=== PATIENT | female | born 1940 | race Caucasian/White ===

== ENCOUNTER 2019-08-29 14:28 | Outpatient (CLI) | payer MEDICARE, SELFPAY ==
--- NOTE | 2019-08-29 14:35 | ECHO_ITS ---
Patient Info Name: Maggy Damon Age: 79 years : 1940 Gender: Female Ht: 63 in Wt: 277 lbs BSA: 2.44 m2 HR: 58 bpm BP: 165 / 75 mmHg Technical Quality: Fair Exam Date: 08/29/2019 3:47 PM Exam Location: [facility] Patient Status: Outpatient Admit Date: 08/29/2019 Staff Ordering Physician: Yelena Souza Loader Magazine Grinder: Sanjeev Cee RDCS, RT Attending Provider: Yelena Souza Exam Type: CA echo doppler color flow Study Info Indications R42 - Dizziness and giddiness Complete two-dimensional, color flow and Doppler transthoracic echocardiogram is performed. Summary 1. Left ventricular chamber dimension is normal. 2. Left ventricular systolic function is normal, estimated at 60-65%. 3. There is mildly increased left ventricular wall thickness. 4. The left ventricular diastolic function is grade I diastolic dysfunction. 5. E/e' 7 is not elevated. Left Ventricle E/e' 7 is not elevated. Left ventricular chamber dimension is normal. Left ventricular systolic function is normal, estimated at 60-65%. There is mildly increased left ventricular wall thickness. The left ventricular diastolic function is grade I diastolic dysfunction. Right Ventricle Right ventricular chamber dimension is normal. Right ventricular systolic function is normal. Left Atria Left atrial chamber dimension is normal. Right Atria Right atrial chamber dimension is normal. Aortic Valve The aortic valve is trileaflet. There is no aortic valve stenosis. There is no aortic valve regurgitation. Pulmonic Valve There is no pulmonic regurgitation. Mitral Valve There is no mitral valve stenosis. There is no mitral valve regurgitation. Tricuspid Valve There is no tricuspid valve regurgitation. Pericardium/Pleural There is no pericardial effusion. Inferior Vena Cava Normal inferior vena cava with >50% collapse upon inspiration consistent with normal right atrial pressure, 5 mmHg. Aorta The aortic root size at the sinus of Valsalva is normal. Tricuspid Valve Name Value Normal Estimated PAP/RSVP RA Pressure 5 mmHg <=5 Report Signatures
== END 2019-08-29 14:29 | disposition home or self-care (01) ==
PROVIDERS: Visit Provider Nurse Practitioner
DX: R42 Dizziness and giddiness (principal); R00.1 Bradycardia, unspecified
CPT/HCPCS: 93306

== ENCOUNTER 2019-10-03 09:51 | Outpatient (CLI) | payer MEDICARE, SELFPAY ==
[2019-10-03 10:24] LABS: Creatinine Urine 196.81 mg/dL (40-278)
[2019-10-03 10:26] LABS: Hemoglobin A1C 7.7 % (<5.7)
[2019-10-03 10:28] LABS: MALB Creatinine Ratio 13.3 mg/g (0-30); Microalbumin Urine Random 26.2 mg/L
[2019-10-03 11:16] LABS: Alanine Aminotransferase 27 U/L (14-59); Albumin Level 3.8 g/dL (3.4-5.0); Alkaline Phosphatase 85 U/L (46-116); Anion Gap 17.1 mmol/L (7-16); Aspartate Amino Transferase 17 U/L (15-37); Bilirubin,Total 0.5 mg/dL (0.00-1.00); Blood Urea Nitrogen 22 mg/dL (7-18); Calcium 9.4 mg/dL (8.5-10.1); Carbon Dioxide 30 mmol/L (21-32); Chloride 102 mmol/L (98-108); Cholesterol 147 mg/dL (0-200); Estimated Glomerular Filt Rate 39; Glucose 149 mg/dL (70-99); HDL Direct 45 mg/dL (40-60); LDL Cholesterol Calculated 54 mg/dL (<130); Osmolality Calculated 306 mOsm/kg (285-295); Potassium 4.1 mmol/L (3.5-5.1); Sodium 145 mmol/L (136-145); Thyroid Stimulating Hormone 1.96 uIU/mL (0.36-3.74); Total Protein 7.2 g/dL (6.4-8.2); Triglycerides 240 mg/dL (0-150)
[2019-10-09 09:23] LABS: Vitamin D 25 Hydroxy 37 ng/mL (30-100)
== END 2019-10-03 09:52 | disposition home or self-care (01) ==
LOC: CHSLAB 09:56
PROVIDERS: PCP Internal Medicine; Visit Provider Nurse Practitioner
DX: E55.9 Vitamin D deficiency, unspecified (principal); E11.9 Type 2 diabetes mellitus without complications; E03.9 Hypothyroidism, unspecified; E78.2 Mixed hyperlipidemia
CPT/HCPCS: 36415; 80053; 80061; 82043; 82306; 83036; 84443

== ENCOUNTER 2020-03-09 08:51 | Outpatient (CLI) | payer MEDICARE, SELFPAY ==
--- NOTE | ~2020-03-09 | MM_ITS ---
EXAMINATION: MM screen LT diag RT w [facility] HISTORY: Follow-up breast mass TECHNIQUE: Additional 3-D tomosynthesis images of the breasts were performed and synthetic 2-D images were generated. Screening left mammogram. CAD analysis was submitted and interpreted. COMPARISON: Comparison to multiple prior studies sequentially, with oldest reviewed study dated 04/18. BREAST PARENCHYMAL COMPOSITION: Breast composed of scattered areas of fibroglandular density. FINDINGS: The left breast is stable without evidence for malignancy. Multiple masses in the outer asp ect of the right breast are redemonstrated without significant change compared with prior examination s. There are no new masses, calcifications or architectural distortion to suggest malignancy. IMPRESSION: 1. Stable bilateral mammogram without evidence for malignancy. 2. Routine yearly screening mammogram and regular clinical breast examination are recommended. BI-RADS Category 2: Benign finding(s). Reviewed, dictated and finalized at location A. IMPRESSION: 1. Stable bilateral mammogram without evidence for malignancy. 2. Routine yearly screening mammogram and regular clinical breast examination a re recommended. BI-RADS Category 2: Benign finding(s).
[2020-03-09 09:48] LABS: Hemoglobin A1C 7.2 % (<5.7)
[2020-03-09 13:05] LABS: Alanine Aminotransferase 24 U/L (14-59); Albumin Level 3.6 g/dL (3.4-5.0); Alkaline Phosphatase 82 U/L (46-116); Anion Gap 17.1 mmol/L (7-16); Aspartate Amino Transferase 14 U/L (15-37); Bilirubin,Total 0.3 mg/dL (0.00-1.00); Blood Urea Nitrogen 20 mg/dL (7-18); Calcium 9.9 mg/dL (8.5-10.1); Carbon Dioxide 30 mmol/L (21-32); Chloride 100 mmol/L (98-108); Cholesterol 139 mg/dL (0-200); Estimated Glomerular Filt Rate 35; Glucose 144 mg/dL (70-99); HDL Direct 44 mg/dL (40-60); LDL Cholesterol Calculated 53 mg/dL (<130); Osmolality Calculated 301 mOsm/kg (285-295); Potassium 4.1 mmol/L (3.5-5.1); Sodium 143 mmol/L (136-145); Thyroid Stimulating Hormone 0.79 uIU/mL (0.36-3.74); Total Protein 7.1 g/dL (6.4-8.2); Triglycerides 212 mg/dL (0-150); Uric Acid 4.9 mg/dL (2.6-6.0)
[2020-03-12 18:51] LABS: Vitamin D 25 Hydroxy 38 ng/mL (30-100)
== END 2020-03-09 08:52 | disposition home or self-care (01) ==
LOC: CHSIMG 08:55
PROVIDERS: PCP Internal Medicine; Visit Provider Nurse Practitioner
DX: R92.8 Other abnormal and inconclusive findings on diagnostic imaging of breast (principal); E79.0 Hyperuricemia without signs of inflammatory arthritis and tophaceous disease; E78.5 Hyperlipidemia, unspecified; E11.9 Type 2 diabetes mellitus without complications; E55.9 Vitamin D deficiency, unspecified; Z79.899 Other long term (current) drug therapy; E03.9 Hypothyroidism, unspecified; Z12.31 Encounter for screening mammogram for malignant neoplasm of breast
CPT/HCPCS: 36415; 77063; 77065; 77067; 80053; 80061; 82306; 83036; 84443; 84550

== ENCOUNTER 2020-08-04 09:15 | Outpatient (CLI) | payer MEDICARE, SELFPAY ==
[2020-08-04 09:38] LABS: Hematocrit 42.7 % (35.0-42.0); Hemoglobin 13.2 g/dL (11.7-13.8); Mean Corpuscular HGB Conc 30.9 g/dL (32.0-36.0); Mean Corpuscular Hemoglobin 30.8 pg (27.0-31.0); Mean Corpuscular Volume 99.5 fL (78.0-102.0); Mean Platelet Volume 9.6 fl (9.2-11.8); Platelet Count Result 431 K/mm3 (150-420); Red Blood Count 4.29 M/mm3 (4.20-5.40); Red Cell Distribution Width 14.1 % (11.6-14.4); White Blood Count 10.3 K/mm3 (4.8-10.8)
[2020-08-04 10:09] LABS: Alanine Aminotransferase 21 U/L (14-59); Albumin Level 3.7 g/dL (3.4-5.0); Alkaline Phosphatase 85 U/L (46-116); Anion Gap 11 mmol/L (8-16); Aspartate Amino Transferase 11 U/L (15-37); Bilirubin,Total 0.3 mg/dL (0.00-1.00); Blood Urea Nitrogen 15 mg/dL (7-18); Calcium 9.2 mg/dL (8.5-10.1); Carbon Dioxide 28 mmol/L (21-32); Chloride 105 mmol/L (98-108); Cholesterol 170 mg/dL (0-200); Estimated Glomerular Filt Rate 41; Glucose 132 mg/dL (70-99); HDL Direct 56 mg/dL (40-60); LDL Cholesterol Calculated 73 mg/dL (<130); Osmolality Calculated 300 mOsm/kg (285-295); Potassium 4.4 mmol/L (3.5-5.1); Sodium 144 mmol/L (136-145); Thyroid Stimulating Hormone 0.99 uIU/mL (0.36-3.74); Total Protein 7.3 g/dL (6.4-8.2); Triglycerides 207 mg/dL (0-150); Uric Acid 4.3 mg/dL (2.6-6.0)
[2020-08-04 10:22] LABS: Hemoglobin A1C 7.1 % (<5.7)
[2020-08-04 10:45] LABS: Creatinine Urine 225.88 mg/dL (40-278); MALB Creatinine Ratio 16.2 mg/g (0-30); Microalbumin Urine Random 36.7 mg/L
== END 2020-08-04 09:16 | disposition home or self-care (01) ==
LOC: CHSLAB 09:18
PROVIDERS: PCP Nurse Practitioner; Visit Provider Internal Medicine Rheumatology
DX: E03.9 Hypothyroidism, unspecified (principal); Z79.899 Other long term (current) drug therapy; E78.5 Hyperlipidemia, unspecified; E11.9 Type 2 diabetes mellitus without complications; M1A.0490 Idiopathic chronic gout, unspecified hand, without tophus (tophi)
CPT/HCPCS: 36415; 80053; 80061; 82043; 83036; 84443; 84550; 85027

== ENCOUNTER 2021-02-08 09:48 | Outpatient (CLI) | payer MEDICARE, SELFPAY ==
[2021-02-08 10:11] LABS: Hemoglobin A1C 6.4 % (<5.7)
[2021-02-08 10:52] LABS: Alanine Aminotransferase 16 U/L (14-59); Albumin Level 3.4 g/dL (3.4-5.0); Alkaline Phosphatase 61 U/L (46-116); Anion Gap 12 mmol/L (8-16); Aspartate Amino Transferase < 10 U/L (15-37); Bilirubin,Total 0.3 mg/dL (0.00-1.00); Blood Urea Nitrogen 26 mg/dL (7-18); Calcium 9.7 mg/dL (8.5-10.1); Carbon Dioxide 27 mmol/L (21-32); Chloride 103 mmol/L (98-108); Cholesterol 147 mg/dL (0-200); Estimated Glomerular Filt Rate 41; Glucose 108 mg/dL (70-99); HDL Direct 46 mg/dL (40-60); LDL Cholesterol Calculated 60 mg/dL (<130); Osmolality Calculated 299 mOsm/kg (285-295); Potassium 4.5 mmol/L (3.5-5.1); Sodium 142 mmol/L (136-145); Thyroid Stimulating Hormone 0.28 uIU/mL (0.36-3.74); Total Protein 6.5 g/dL (6.4-8.2); Triglycerides 203 mg/dL (0-150)
[2021-02-11 19:44] LABS: Vitamin D 25 Hydroxy 33 ng/mL (30-100)
== END 2021-02-08 09:49 | disposition home or self-care (01) ==
LOC: CHSLAB 09:50
PROVIDERS: PCP Internal Medicine; Visit Provider Nurse Practitioner
DX: E03.9 Hypothyroidism, unspecified (principal); E78.5 Hyperlipidemia, unspecified; E11.9 Type 2 diabetes mellitus without complications; E55.9 Vitamin D deficiency, unspecified
CPT/HCPCS: 36415; 80053; 80061; 82306; 83036; 84443

== ENCOUNTER 2021-08-17 10:58 | Outpatient (CLI) | payer MEDICARE, SELFPAY ==
[2021-08-17 11:35] LABS: MALB Creatinine Ratio 34.5 mg/g (0-30); Microalbumin Urine Random 39.7 mg/L
[2021-08-17 11:36] LABS: Hemoglobin A1C 6.7 % (<5.7)
[2021-08-17 12:28] LABS: Alanine Aminotransferase 15 U/L (14-59); Albumin Level 3.3 g/dL (3.4-5.0); Alkaline Phosphatase 73 U/L (46-116); Anion Gap 8 mmol/L (8-16); Aspartate Amino Transferase < 10 U/L (15-37); Bilirubin,Total 0.2 mg/dL (0.00-1.00); Blood Urea Nitrogen 19 mg/dL (7-18); Calcium 9.3 mg/dL (8.5-10.1); Carbon Dioxide 29 mmol/L (21-32); Chloride 108 mmol/L (98-108); Cholesterol 140 mg/dL (0-200); Estimated Glomerular Filt Rate 44; Glucose 96 mg/dL (70-99); HDL Direct 50 mg/dL (40-60); LDL Cholesterol Calculated 61 mg/dL (<130); Osmolality Calculated 302 mOsm/kg (285-295); Potassium 5.1 mmol/L (3.5-5.1); Sodium 145 mmol/L (136-145); Thyroid Stimulating Hormone 2.37 uIU/mL (0.36-3.74); Total Protein 6.4 g/dL (6.4-8.2); Triglycerides 143 mg/dL (0-150); Uric Acid 4.4 mg/dL (2.6-6.0)
[2021-08-19 12:56] LABS: Vitamin D 25 Hydroxy 33 ng/mL (30-100)
== END 2021-08-17 10:59 | disposition home or self-care (01) ==
LOC: CHSLAB 11:00
PROVIDERS: PCP Internal Medicine; Visit Provider Internal Medicine Rheumatology
DX: E11.8 Type 2 diabetes mellitus with unspecified complications (principal); Z79.899 Other long term (current) drug therapy; I10 Essential (primary) hypertension; E03.9 Hypothyroidism, unspecified; E55.9 Vitamin D deficiency, unspecified; M10.9 Gout, unspecified
CPT/HCPCS: 36415; 80053; 80061; 82043; 82306; 83036; 84443; 84550

== ENCOUNTER 2021-08-27 16:03 | Emergency (ER) | payer MEDICARE, SELFPAY ==
--- NOTE | ~2021-08-27 | XR_ITS ---
EXAMINATION: XR chest 1V portable EXAM DATE: 08/27/2021 17:03 INDICATION: SOB x 2 wks with weakness. TECHNIQUE: Portable AP frontal chest x-ray was obtained. Comparison is made to prior examination from 08/14/2019. FINDINGS: Cardiomegaly and pulmonary vascular congestion. No confluent consolidation, pneumothorax or pleural effusion suspected. There are bony degenerative changes. IMPRESSION: Cardiomegaly, pulmonary vascular congestion. Reviewed, dictated and finalized at location A. PAINTER
[2021-08-27 16:05] VITALS: BP 123/58; PULSE 61; RESP 18; TEMP 36.9; O2SAT 95
[2021-08-27 17:00] LABS: Basophils Absolute Auto 0.02 K/mm3 (0.00-0.10); Basophils Percent Auto 0.2 % (0.0-1.0); Eosinophils Percent Auto 0.9 % (1.0-6.0); Hematocrit 38.3 % (35.0-42.0); Hemoglobin 11.2 g/dL (11.7-13.8); Immature Granulocyte Absolute 0.09 K/mm3 (0.00-0.00); Immature Granulocyte Percent A 0.8 % (0.0-0.0); Lymphocytes Percent Auto 10.2 % (18.0-42.0); Mean Corpuscular HGB Conc 29.2 g/dL (32.0-36.0); Mean Corpuscular Hemoglobin 30.1 pg (27.0-31.0); Mean Platelet Volume 9.9 fl (9.2-11.8); Monocytes Absolute Auto 0.74 K/mm3 (0.10-0.90); Monocytes Percent Auto 6.3 % (2.0-11.0); Neutrophils Absolute Auto 9.6 K/mm3 (1.7-7.2); Neutrophils Percent Auto 81.6 % (50.0-70.0); Platelet Count Result 345 K/mm3 (150-420); Red Blood Count 3.72 M/mm3 (4.20-5.40); Red Cell Distribution Width 14.6 % (11.6-14.4); White Blood Count 11.8 K/mm3 (4.8-10.8)
[2021-08-27 17:18] LABS: Alanine Aminotransferase 24 U/L (14-59); Alkaline Phosphatase 76 U/L (46-116); Anion Gap 11 mmol/L (8-16); Aspartate Amino Transferase 18 U/L (15-37); Bilirubin,Total 0.2 mg/dL (0.00-1.00); Blood Urea Nitrogen 10 mg/dL (7-18); Calcium 8.5 mg/dL (8.5-10.1); Carbon Dioxide 29 mmol/L (21-32); Chloride 102 mmol/L (98-108); Estimated CRCL calculation 36 ml/min; Estimated Glomerular Filt Rate 36; Glucose 171 mg/dL (70-99); Lipase 33 U/L (73-393); Osmolality Calculated 297 mOsm/kg (285-295); Potassium 4.8 mmol/L (3.5-5.1); Sodium 142 mmol/L (136-145); Total Protein 7.1 g/dL (6.4-8.2); Troponin I 11.4 ng/L (0.00-60.4)
[2021-08-27] MEDS: ONDANSETRON HCL ODT 4 MG TABLET PO (17:25)
[2021-08-27 17:31] LABS: SARS-CoV-2 Ag Positive (Negative)
[2021-08-27 17:57] LABS: NT Pro B Type Natriuretic Pept 407 pg/mL (0-450)
[2021-08-27 18:05] VITALS: BP 131/67; PULSE 59; RESP 18; TEMP 36.6; O2SAT 96
[2021-08-27 18:41] VITALS: BP 129/70; PULSE 62; RESP 18; TEMP 36.6; O2SAT 97
--- NOTE | 2021-08-27 19:31 | ED.NAVMDI ---
HPI - Nausea/Vomiting/Diarrhea General Chief complaint: Nausea/Vomiting/Diarrhea Stated complaint: vomiting, SOB, trouble breathing Source: patient Mode of arrival: ambulatory Limitations: no limitations History of Present Illness HPI Narrative: Diarrhea for 5 days, fatigue for 1.5 weeks, some nausea today. Just doesnt feel well. MD elicited complaint: nausea, vomiting and diarrhea Onset (ago): hour(s) Associated nausea: Yes Associated abdominal pain: No Location of pain: none Radiation: diffuse Pain consistency: constant Quality: cramping Exacerbating factors: none Relieving factors: none Associated symptoms: myalgias, headaches, loss of appetite, malaise, nausea/vomiting and weakness Related Data Home Medications Medication Instructions Recorded Confirmed allopurinol 100 mg tablet 100 mg PO BID tablet 04/09/20 08/27/21 brimonidine 0.15 % eye drops 1 drop EACH EYE BID ml 04/09/20 08/27/21 cholecalciferol (vitamin D3) 25 25 mcg PO DAILY 04/09/20 08/27/21 mcg (1,000 unit) tablet latanoprost 0.005 % eye drops 1 drop EACH EYE QPM 04/09/20 08/27/21 Allergies Allergy/AdvReac Type Severity Reaction Status Date / Time gadobenic acid Allergy Severe Dizziness Verified 08/27/21 16:48 [From CONTRAST-MRI] iohexol Allergy Severe Dizziness Verified 08/27/21 16:48 [From CONTRAST - CT, XRAY] propoxyphene AdvReac Mild N/V Verified 08/27/21 16:48 hydromorphone AdvReac Unknown Other Verified 08/27/21 16:48 Review of Systems Constitutional: Constitutional: Reports chills, Reports fatigue, Denies fever(s) and Reports weakness Eyes: Eyes: Reports no additional eye complaints ENT: Denies dysphagia, Denies dizziness, Denies epistaxis, Reports nasal congestion and Denies sore throat Cardiovascular: Cardiovascular: Reports no additional cardiovascular complaints Respiratory: Respiratory: Reports no additional respiratory complaints Gastrointestinal: Gastrointestinal: Denies abdominal pain, Denies bloating, Denies constipation, Denies heartburn, Reports diarrhea, Reports nausea and Reports vomiting Musculoskeletal: Musculoskeletal: Reports myalgias Neurologic: Denies vertigo, Denies syncope, Denies focal weakness, Denies numbness and Reports weakness Psychiatric: Psychiatric: Denies anxiety and Denies depression Endocrine: Endocrine: Reports fatigue Hematologic/Lymphatic: Hematologic/Lymphatic: Reports no additional hematologic/lymphatic complaints Allergic/Immunologic: Allergic/Immunologic: Reports no additional allergic/immunologic complaints FOR[facility]LY [facility] Past Medical History Medical History Cataracts, bilateral Chronic back pain Chronic kidney disease, stage 3 DDD (degenerative disc disease) Diverticulitis Diverticulosis DM II (diabetes mellitus, type II), controlled Dysphagia Glaucoma H/O: HTN (hypertension) History of GI bleed History of pneumonia HLD (hyperlipidemia) Hx of gout Hx of hiatal hernia Hypothyroid Left rotator cuff tear OA (osteoarthritis) Osteopenia PUD (peptic ulcer disease) Screening for breast cancer Surgical History Surgical History H/O breast biopsy History of endoscopy History of partial colectomy History of repair of hiatal hernia Hx of bilateral cataract extraction Family History Family History Mother Family history of malignant neoplasm of breast in first degree relative, Onset Age: 45 Patient's mother is Sibling Family history of malignant neoplasm of breast in first degree relative Family history of renal failure Father Family history of congestive heart failure, Onset Age: 72 Patient's father is Social History Social History Smoking status: Never smoker Second hand tobacco smoke exposure: No
== END 2021-08-27 18:44 | disposition home or self-care (01) ==
PROVIDERS: Emergency Provider Emergency Medicine; PCP Internal Medicine
DX: U07.1 COVID-19 (principal); N18.30 Chronic kidney disease, stage 3 unspecified; E78.5 Hyperlipidemia, unspecified
CPT/HCPCS: 36415; 71045; 80053; 83690; 83880; 84484; 85025; 87426; 99282; 99284; A9270; C9803

== ENCOUNTER 2021-11-10 08:24 | Outpatient (CLI) | payer MEDICARE, SELFPAY ==
--- NOTE | ~2021-11-10 | MM_ITS ---
EXAMINATION: MM screening [facility] BI w [facility] HISTORY: Screening mammogram TECHNIQUE: Craniocaudal and mediolateral oblique 3-D tomosynthesis images were obtained and synthetic 2-D images were generated. CAD analysis was submitted and interpreted. COMPARISON: 03/09/2020 bilateral screening mammogram 3 bilateral screening mammogram BREAST PARENCHYMAL COMPOSITION: There are scattered areas of fibroglandular density. FINDINGS: There is a biopsy marker in the upper outer quadrant of the right breast; history of prior benign right breast biopsy. Scattered bilateral benign calcifications. There is no evidence of suspicious mass, calcification, or architectural distortion to suggest malign deanna in either breast. There has been no suspicious interval change. IMPRESSION: 1. No mammographic evidence of malignancy. 2. Recommend routine screening mammography in one year. BI-RADS Category 2: Benign finding(s). Reviewed, dictated and finalized at location A.
== END 2021-11-10 08:25 | disposition home or self-care (01) ==
LOC: CHSIMG 08:25
PROVIDERS: PCP Internal Medicine; Visit Provider Nurse Practitioner
DX: Z12.31 Encounter for screening mammogram for malignant neoplasm of breast (principal)
CPT/HCPCS: 77063; 77067

== ENCOUNTER 2022-01-04 10:02 | Outpatient (CLI) | payer MEDICARE, SELFPAY ==
[2022-01-04 10:28] LABS: Basophils Absolute Auto 0.04 K/mm3 (0.00-0.10); Basophils Percent Auto 0.3 % (0.0-1.0); Eosinophils Percent Auto 0.8 % (1.0-6.0); Hematocrit 37.7 % (35.0-42.0); Hemoglobin 11.8 g/dL (11.7-13.8); Immature Granulocyte Absolute 0.09 K/mm3 (0.00-0.00); Immature Granulocyte Percent A 0.7 % (0.0-0.0); Lymphocytes Absolute Auto 1.66 K/mm3 (1.10-4.50); Lymphocytes Percent Auto 13.5 % (18.0-42.0); Mean Corpuscular HGB Conc 31.3 g/dL (32.0-36.0); Mean Corpuscular Hemoglobin 31.2 pg (27.0-31.0); Mean Corpuscular Volume 99.7 fL (78.0-102.0); Mean Platelet Volume 9.5 fl (9.2-11.8); Monocytes Absolute Auto 0.92 K/mm3 (0.10-0.90); Monocytes Percent Auto 7.5 % (2.0-11.0); Neutrophils Absolute Auto 9.5 K/mm3 (1.7-7.2); Neutrophils Percent Auto 77.2 % (50.0-70.0); Platelet Count Result 431 K/mm3 (150-420); Red Blood Count 3.78 M/mm3 (4.20-5.40); Red Cell Distribution Width 15.3 % (11.6-14.4); White Blood Count 12.3 K/mm3 (4.8-10.8)
[2022-01-04 10:43] LABS: Alanine Aminotransferase 21 U/L (14-59); Albumin Level 3.3 g/dL (3.4-5.0); Alkaline Phosphatase 78 U/L (46-116); Anion Gap 5 mmol/L (8-16); Aspartate Amino Transferase < 10 U/L (15-37); Bilirubin,Total 0.3 mg/dL (0.00-1.00); Blood Urea Nitrogen 22 mg/dL (7-18); Carbon Dioxide 34 mmol/L (21-32); Chloride 101 mmol/L (98-108); Estimated Glomerular Filt Rate 31; Glucose 91 mg/dL (70-99); Osmolality Calculated 293 mOsm/kg (285-295); Potassium 4.3 mmol/L (3.5-5.1); Sodium 140 mmol/L (136-145); Total Protein 7.5 g/dL (6.4-8.2)
== END 2022-01-04 10:03 | disposition home or self-care (01) ==
LOC: CHSLAB 10:06
PROVIDERS: PCP Internal Medicine; Visit Provider Internal Medicine
DX: E78.2 Mixed hyperlipidemia (principal); I12.9 Hypertensive chronic kidney disease with stage 1 through stage 4 chronic kidney disease, or unspecified chronic kidney disease; N18.30 Chronic kidney disease, stage 3 unspecified; R06.02 Shortness of breath
CPT/HCPCS: 36415; 80053; 85025

== ENCOUNTER 2022-01-04 10:41 | Emergency (ER) | payer MEDICARE, SELFPAY ==
[2022-01-04 11:00] VITALS: BP 147/99; PULSE 87; RESP 18; TEMP 36.9; O2SAT 97
--- NOTE | 2022-01-04 11:03 | ED.FALL ---
HPI - Fall General Chief Complaint: Fall Stated Complaint: FELL IN PARKING LOT Time Seen by Provider: 01/04/22 11:03 Source: patient and RN notes reviewed Mode of arrival: wheelchair Limitations: no limitations History of Present Illness complaint: fall Onset (ago): minute(s) (5) Fall from: standing Fall witnessed: yes, by bystander Place fall occurred: street Loss of consciousness: none Context: tripped/slipped Location of injury - extremities: Right: elbow, hand (thumb) and knee Severity: mild Quality: dull and aching Associated symptoms (after fall): denies Related Data Home Medications Medication Instructions Recorded Confirmed brimonidine 0.15 % eye drops 1 drop EACH EYE BID ml 04/09/20 01/03/22 cholecalciferol (vitamin D3) 25 25 mcg PO DAILY 04/09/20 01/03/22 mcg (1,000 unit) tablet latanoprost 0.005 % eye drops 1 drop EACH EYE QPM 04/09/20 01/03/22 pantoprazole 40 mg PO BID 01/04/22 01/04/22 Allergies Allergy/AdvReac Type Severity Reaction Status Date / Time gadobenic acid Allergy Severe Dizziness Verified 01/04/22 11:00 [From CONTRAST-MRI] iohexol Allergy Severe Dizziness Verified 01/04/22 11:00 [From CONTRAST - CT, XRAY] propoxyphene AdvReac Mild N/V Verified 01/04/22 11:00 hydromorphone AdvReac Unknown Other Verified 01/04/22 11:00 Review of Systems Review of Systems: All systems reviewed & are unremarkable except as noted in HPI and below PMFSH Past Medical History Medical History Cataracts, bilateral Chronic back pain Chronic kidney disease, stage 3 DDD (degenerative disc disease) Diverticulitis Diverticulosis DM II (diabetes mellitus, type II), controlled Dysphagia Glaucoma H/O: HTN (hypertension) History of GI bleed History of pneumonia HLD (hyperlipidemia) Hx of gout Hx of hiatal hernia Hypothyroid Left rotator cuff tear OA (osteoarthritis) Osteopenia PUD (peptic ulcer disease) Screening for breast cancer Surgical History Surgical History H/O breast biopsy History of endoscopy History of partial colectomy History of repair of hiatal hernia Hx of bilateral cataract extraction Family History Family History Mother Family history of malignant neoplasm of breast in first degree relative, Onset Age: 45 Patient's mother is Sibling Family history of malignant neoplasm of breast in first degree relative Family history of renal failure Father Family history of congestive heart failure, Onset Age: 72 Patient's father is Social History Social History Smoking status: Never smoker Second hand tobacco smoke exposure: No Alcohol intake: never Substance use: never Substance use type: does not use Gender identity (if verbalized by the patient): Female Exam Const: General: healthy appearing, no acute distress and alert Nutritional Appearance: well nourished and obese morbidly obese Orientation/consciousness: patient oriented x3 HENMT: Head: normal to inspection Ears: external ears normal Face and sinus: normal facial exam Mouth: Yes moist mucous membranes Eyes: Conjunctivae: conjunctivae normal Pupils: Equal, round and reactive pupils present EOM: EOMs intact bilaterally Neck: Neck: normal visual inspection Resp: Effort & Inspection: normal respiratory effort Auscultation: clear to auscultation bilaterally Cardio: Rate: regular rate Rhythm: regular rhythm GI: GI Palp: Yes Soft to palpation and No Tenderness to palpation present (GI) Auscultation: normal bowel sounds Back/Spine/Pelvis: Cervical Spine: cervical ROM normal Thoracic/Lumbar Spine: thoraco-lumbar ROM normal Skin: General skin exam: normal color Rashes: no rashes Wounds: wounds noted tear right lateral elbow size (5 cm accross X
== END 2022-01-04 11:27 | disposition home or self-care (01) ==
PROVIDERS: Emergency Provider Emergency Medicine; PCP Internal Medicine
DX: S51.001A Unspecified open wound of right elbow, initial encounter (principal); W01.0XXA Fall on same level from slipping, tripping and stumbling without subsequent striking against object, initial encounter; E11.9 Type 2 diabetes mellitus without complications; I10 Essential (primary) hypertension; E78.5 Hyperlipidemia, unspecified; E03.9 Hypothyroidism, unspecified
CPT/HCPCS: 99282

== ENCOUNTER 2022-02-04 13:24 | Outpatient (CLI) | payer MEDICARE, SELFPAY ==
--- NOTE | 2022-02-04 13:29 | ECHO_ITS ---
Patient Info Name: Maggy Damon Age: 81 years : 1940 Gender: Female Ht: 63 in Wt: 277 lbs BSA: 2.44 m2 HR: 52 bpm BP: 145 / 67 mmHg Heart Rhythm: Sinus Rhythm Technical Quality: Fair Exam Date: 02/04/2022 1:17 PM Exam Location: [facility] Patient Status: Outpatient Admit Date: 02/04/2022 Staff Ordering Physician: Marquise Srinivasan DO Maintenance Shop Welder: Juany Moore RDCS Attending Provider: Marquise Srinivasan DO Referring Physician: Zarina OLSON; Exam Type: CA echo doppler color flow Study Info Indications - short of breath Complete two-dimensional, color flow and Doppler transthoracic echocardiogram is performed. Summary 1. Complete two-dimensional, color flow and Doppler transthoracic echocardiogram is performed. 2. Left ventricular chamber dimension is normal. 3. Left ventricular systolic function is normal, estimated at 60-65%. 4. There is mildly increased left ventricular wall thickness. 5. The left ventricular diastolic function is grade II diastolic dysfunction. 6. E/e' 13 is mildly elevated. 7. There is mild aortic valve sclerosis. 8. There is mild aortic valve regurgitation. 9. The mitral valve has moderately calcified annulus. 10. No pulmonary hypertension, estimated pulmonary arterial systolic pressure is 26 mmHg. Left Ventricle E/e' 13 is mildly elevated. Left ventricular chamber dimension is normal. Left ventricular systolic function is normal, estimated at 60-65%. There is mildly increased left ventricular wall thickness. The left ventricular diastolic function is grade II diastolic dysfunction. Right Ventricle Right ventricular systolic function is normal and with normal TAPSE 2.2 cm. Right ventricular chamber dimension is normal. Left Atria Left atrial chamber dimension is normal. Right Atria Right atrial chamber dimension is normal. Aortic Valve The aortic valve is trileaflet. There is mild aortic valve sclerosis. There is no aortic valve stenosis. There is mild aortic valve regurgitation. Pulmonic Valve There is no pulmonic regurgitation. Mitral Valve The mitral valve has moderately calcified annulus. There is no mitral valve stenosis. There is no mitral valve regurgitation. Tricuspid Valve There is no tricuspid valve regurgitation. No pulmonary hypertension, estimated pulmonary arterial systolic pressure is 26 mmHg. Pericardium/Pleural There is no pericardial effusion. Inferior Vena Cava Normal inferior vena cava with >50% collapse upon inspiration consistent with normal right atrial pressure, 5 mmHg. Aorta The aortic root size at the sinus of Valsalva is normal. Left Ventricular Outflow Tract Name Value Normal LVOT 2D LVOT Diameter 1.9 cm LVOT Doppler LVOT Peak Velocity 119 cm/s LVOT Peak Gradient 6 mmHg LVOT Mean Gradient 3 mmHg LVOT VTI 29 cm LVOT VTI/AV VTI Ratio 0.7 LVOT Stroke Volume 85 ml Pulmonic Valve
== END 2022-02-04 13:25 | disposition home or self-care (01) ==
LOC: CHSIMG 13:26
PROVIDERS: PCP Internal Medicine; Visit Provider Internal Medicine
DX: R06.02 Shortness of breath (principal); R60.9 Edema, unspecified
CPT/HCPCS: 93306

== ENCOUNTER 2022-02-09 07:49 | Outpatient (RCR) | payer MEDICARE, SELFPAY ==
--- NOTE | 2022-02-09 08:51 | PTOPEVAL ---
Thank you for referring Maggy Damon to [facility].? The patient is scheduled to be seen for therapy? __2__x/week for 6 visits. Please review, sign, date and return this plan of care LEILANI. I agree with and certify that the following plan of care is medically necessary. Referring Physician Date Admitting Provider: Attending Provider: Marquise Srinivasan DO Referring Provider: *PT Outpatient Evaluation Start: 02/09/22 08:06 Freq: Status: Active Protocol: Document 02/09/22 08:06 LUBA (Rec: 02/09/22 08:50 LUBA [id number]) Therapy Assessment Status Assessment Status Assessment Status Evaluation Outpatient Past Medical History Cardiovascular History Hx Hypercholesterolemia Yes Hx Hypertension Yes Hematological History Hx Other Hematological Disorders Yes: gout Endocrine History Hx Diabetes Yes Hx Hypothyroidism Yes Reproductive History Hx Post Menopausal Yes Evaluation Information Problem Diagnosis lymphedema Onset 02/07/22 Subjective Information Pt. reports that she went to Query Text:As Reported By Patient/ the doctor recently and he was Family concerned regarding swelling into her legs. She does notes some fluid that will come out fo the left l.e. but not the right. Pt. denies any change in her activity level recently , but states that she is not an active person anyway. Pt. reports that she wore compression stocking several years ago, but has not since. she report that she developed a recent bruis and blister on the left l.e., but does not recall where she obtained the bruise. She states that she is home by herself, and she does very little driving. She reports that she is uncertain of her goal for therapy. Pain Assessment Timing of Pain Assessment Timing of Pain Assessment Pre-Treatment Self Report Self Report Pain Level 0 Pain Score Pain Score 0: Self Report Lymphedema Evaluation Lymphedema Evaluation Lymphedema History Cardiovascular Insufficiency Lymphedema Treatment Precautions Arthritis,Diabetes Skin Inspection Location Left Lower Extremity,Right Lower Extrem
== END 2022-02-24 11:33 | disposition home or self-care (01) ==
LOC: CHSPT 07:49
PROVIDERS: Visit Provider Internal Medicine
DX: I89.0 Lymphedema, not elsewhere classified (principal)
CPT/HCPCS: 97110; 97140; 97161; 97530

== ENCOUNTER 2022-02-15 13:47 | Outpatient (CLI) | payer MEDICARE, SELFPAY ==
--- NOTE | ~2022-02-15 | US_ITS ---
EXAMINATION:US venous doppler LE BI INDICATION:Bilateral leg edema TECHNIQUE: Multiple grayscale, color flow and Doppler images of the right and left lower extremity de ep venous systems were obtained and reviewed. COMPARISON:No prior studies for comparison. FINDINGS: The common femoral, superficial femoral and popliteal veins demonstrate normal respiratory variation, augmentation and compressibility. Color flow is also seen within the posterior tibial, pe roneal, greater saphenous and profunda veins. IMPRESSION: 1: No lower extremity deep venous thrombosis. Reviewed, dictated and finalized at location A.
[2022-02-15 14:27] LABS: Hemoglobin A1C 6.6 % (<5.7)
[2022-02-15 14:42] LABS: Cholesterol 148 mg/dL (0-200); HDL Direct 52 mg/dL (40-60); LDL Cholesterol Calculated 44 mg/dL (<130); Thyroid Stimulating Hormone 10.21 uIU/mL (0.36-3.74); Triglycerides 261 mg/dL (0-150); Uric Acid 5.1 mg/dL (2.6-6.0)
[2022-02-20 14:16] LABS: Vitamin D 25 Hydroxy 35 ng/mL (30-100)
== END 2022-02-15 13:48 | disposition home or self-care (01) ==
LOC: CHSIMG 13:49
PROVIDERS: Nurse Practitioner; PCP Internal Medicine; Visit Provider Internal Medicine
DX: R60.0 Localized edema (principal); E11.8 Type 2 diabetes mellitus with unspecified complications; E78.2 Mixed hyperlipidemia; E03.9 Hypothyroidism, unspecified; M1A.0490 Idiopathic chronic gout, unspecified hand, without tophus (tophi); E55.9 Vitamin D deficiency, unspecified
CPT/HCPCS: 36415; 80061; 82306; 83036; 84443; 84550; 93970

== ENCOUNTER 2022-02-19 08:18 | Outpatient (CLI) | payer MEDICARE, SELFPAY ==
[2022-02-19 08:38] LABS: Add Urine Microscopic? YES; Appearance Urine Clear (Clear); Bilirubin Urine Negative (Negative); Blood Urine Negative (Negative); Color Urine Light Yellow (Yellow); Glucose Urine UA Negative (Negative); Ketones Urine Negative (Negative); Leukocyte Esterase Ur 2+ LEU/UL (Negative); Nitrate Urine Negative (Negative); Protein Urine Negative (Negative); Specific Grav Ur <= 1.005 (1.010-1.020); Urobilinogen Urine 0.2 mg/dL (0.2-1.0); pH Urine 6.5 (5.0-8.0)
[2022-02-19 08:46] LABS: RBC Urine None seen /hpf (0-2); Renal Epithelial Cells Urine Few /hpf; Squamous Epithelial Cell Urine Few /hpf (Few)
[2022-02-19 08:47] LABS: Bacteria Urine 1+ /hpf
[2022-02-19 08:53] LABS: Hemoglobin A1C 6.5 % (<5.7)
[2022-02-19 08:54] LABS: Alanine Aminotransferase 18 U/L (14-59); Albumin Level 3.4 g/dL (3.4-5.0); Alkaline Phosphatase 100 U/L (46-116); Anion Gap 6 mmol/L (8-16); Aspartate Amino Transferase 12 U/L (15-37); Bilirubin,Total 0.2 mg/dL (0.00-1.00); Blood Urea Nitrogen 23 mg/dL (7-18); Calcium 9.4 mg/dL (8.5-10.1); Carbon Dioxide 33 mmol/L (21-32); Chloride 100 mmol/L (98-108); Cholesterol 170 mg/dL (0-200); Estimated Glomerular Filt Rate 33; Glucose 125 mg/dL (70-99); HDL Direct 59 mg/dL (40-60); LDL Cholesterol Calculated 72 mg/dL (<130); Osmolality Calculated 292 mOsm/kg (285-295); Potassium 4.2 mmol/L (3.5-5.1); Sodium 139 mmol/L (136-145); Total Protein 7.9 g/dL (6.4-8.2); Triglycerides 194 mg/dL (0-150)
[2022-02-22 14:20] LABS: Vitamin D 25 Hydroxy 34 ng/mL (30-100)
== END 2022-02-19 08:19 | disposition home or self-care (01) ==
LOC: CHSLAB 08:20
PROVIDERS: PCP Internal Medicine; Visit Provider Nurse Practitioner
DX: E78.2 Mixed hyperlipidemia (principal); N18.30 Chronic kidney disease, stage 3 unspecified; E11.8 Type 2 diabetes mellitus with unspecified complications; E55.9 Vitamin D deficiency, unspecified; R39.9 Unspecified symptoms and signs involving the genitourinary system
CPT/HCPCS: 36415; 80053; 80061; 81001; 82306; 83036; 87077; 87086; 87088; 87186

== ENCOUNTER 2022-05-13 01:50 | Observation (INO) | payer MEDICARE, SELFPAY ==
[2022-05-13] VITALS (31 sets, daily range): BP systolic 100–150; BP diastolic 32–118; PULSE 49–57; RESP 13–20; TEMP 35.7–36.7; O2SAT 79–98; BMI 49.7
--- NOTE | ~2022-05-13 | XR_ITS ---
EXAMINATION: XR chest 1V portable DATE: 05/13/2022 03:13 INDICATION: Nausea and vomiting. TECHNIQUE: A single frontal view of the chest was obtained. COMPARISON: Chest single view 08/27/2021, CT abdomen and pelvis 05/13/2022 FINDINGS: There is mild atelectasis in the lower lung zones. No pleural effusion or pneumothorax. Car diomegaly is noted. There is a prominent left paracardial fat pad. IMPRESSION: 1. Mild atelectasis in the lower lung zones. 2. Cardiomegaly. Reviewed, dictated and finalized at location A.
--- NOTE | ~2022-05-13 | CT_ITS ---
EXAMINATION: CT abdomen pelvis wo con DATE: 05/13/2022 03:37 INDICATION: Nausea and vomiting TECHNIQUE: Computed tomography (CT) of the abdomen and pelvis was performed without intravenous contr ast. The dose-length product (DLP) was 1449.87 mGy-cm. Automated exposure control and iterative recon struction technique were employed. COMPARISON: 12/02/2012 FINDINGS: There is mild atelectasis of the visualized lung bases. Cardiomegaly is noted. There is a s mall sliding hiatal hernia. The gallbladder is surgically absent. The liver, spleen, pancreas, and ad renal glands are normal. There is a 5 mm cyst of the right kidney. The left kidney is unremarkable. N o pathologically enlarged abdominal or pelvic lymph nodes are identified. There is no free intraperit barrios gas or evidence of bowel obstruction. Colonic diverticulosis is present without evidence of div erticulitis. 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 There is severe lumbar spondylosis. There are changes of mesh ventral h ernia repair with fat-containing hernia is seen lateral and inferior to the mesh. A calcified uterine fibroid is noted. IMPRESSION: 1. No CT correlate for the patient's symptoms. Reviewed, dictated and finalized at location A.
[2022-05-13] MEDS: ONDANSETRON HCL ODT 4 MG TABLET PO (02:14)
[2022-05-13 02:23] LABS: Hematocrit 34.3 % (35.0-42.0); Hemoglobin 10.7 g/dL (11.7-13.8); Mean Corpuscular HGB Conc 31.2 g/dL (32.0-36.0); Mean Corpuscular Hemoglobin 29.6 pg (27.0-31.0); Mean Corpuscular Volume 94.8 fL (78.0-102.0); Mean Platelet Volume 9.5 fl (9.2-11.8); Platelet Count Result 416 K/mm3 (150-420); Red Blood Count 3.62 M/mm3 (4.20-5.40); Red Cell Distribution Width 15.8 % (11.6-14.4); White Blood Count 19.2 K/mm3 (4.8-10.8)
[2022-05-13 02:46] LABS: Band Neutrophils Percent 1 % (0-6); Neutrophils Absolute Manual 15.93 K/mm3 (1.7-7.2); Neutrophils Percent Manual 82 % (46-73); Total Cells Counted 100
[2022-05-13 02:47] LABS: Basophils Percent Manual 0 % (0-1); Eosinophils Absolute Manual 0.38 K/mm3 (0.02-0.5); Eosinophils Percent Manual 2 % (1-6); Lymphocytes Absolute Manual 1.53 K/mm3 (1.1-4.5); Lymphocytes Percent Manual 8 % (18-44); Monocytes Absolute Manual 1.34 K/mm3 (0.1-0.90); Monocytes Percent Manual 7 % (3-9); Platelet Estimate Adequate (Adequate)
[2022-05-13 02:48] LABS: Alanine Aminotransferase 13 U/L (14-59); Albumin Level 3.1 g/dL (3.4-5.0); Alkaline Phosphatase 107 U/L (46-116); Anion Gap 11 mmol/L (8-16); Aspartate Amino Transferase 13 U/L (15-37); Bilirubin,Total 0.3 mg/dL (0.00-1.00); Blood Urea Nitrogen 42 mg/dL (7-18); Calcium 9.8 mg/dL (8.5-10.1); Carbon Dioxide 28 mmol/L (21-32); Chloride 91 mmol/L (98-108); Estimated CRCL calculation 20 ml/min; Estimated Glomerular Filt Rate 18; Glucose 154 mg/dL (70-99); Osmolality Calculated 283 mOsm/kg (285-295); Potassium 3.9 mmol/L (3.5-5.1); Sodium 130 mmol/L (136-145); Total Protein 6.8 g/dL (6.4-8.2)
[2022-05-13 02:49] LABS: NT Pro B Type Natriuretic Pept 252 pg/mL (0-450)
--- NOTE | 2022-05-13 02:55 | ECG_ITS ---
Measurements Intervals [place] Rate: 48 P: 63 DE: 261 QRS: -47 QRSD: 189 T: 7 QT: 525 QTc: 473 Interpretive Statements SINUS BRADYCARDIA WITH FIRST DEGREE AV BLOCK RIGHT BUNDLE BRANCH BLOCK LEFT ANTERIOR FASCICULAR BLOCK ABNORMAL ECG COMPARED TO ECG 08/14/2019 12:12:38 SINUS BRADYCARDIA NOW PRESENT FIRST DEGREE AV BLOCK NOW PRESENT RIGHT BUNDLE-BRANCH BLOCK NOW PRESENT Electronically Signed On 05-13-2022 6:37:07 CDT by Dawson Banda D.O.
--- NOTE | 2022-05-13 02:58 | ED.NAVMDI ---
HPI - Nausea/Vomiting/Diarrhea General Chief complaint: Nausea/Vomiting/Diarrhea Stated complaint: NAUSEA Source: patient and family Mode of arrival: wheelchair Limitations: no limitations History of Present Illness HPI Narrative: this is an 81-year-old female recently discharged from [facility] for CHF exacerbation and UTI, was discharged 2 days prior to this visit to the ER. Over the past 24hours the patient has been having nausea and vomiting with some no fever chills no abdominal pain no flank pain no chest pain or shortness of breath. Patient has a history of diabetes, hypertension, echocardiogram performed in 2019 shows grade 1 diastolic dysfunction. The patient was treated in the hospital for urinary tract infection with IV antibiotics and sent home with Levaquin. Patient is a DNR, currently no chest pain or shortness of breath no fever chills. Patient says she has had 2 episodes of loose stools. MD elicited complaint: nausea and vomiting Onset (ago): day(s) Associated nausea: Yes Associated abdominal pain: No Location of pain: none Related Data Home Medications Medication Instructions Recorded Confirmed cholecalciferol (vitamin D3) 25 25 mcg PO DAILY 04/09/20 05/13/22 mcg (1,000 unit) tablet latanoprost 0.005 % eye drops 1 drop ophthalmic (eye) QPM 04/09/20 05/13/22 albuterol sulfate 90 mcg/actuation 2 puff inhalation PRN PRN 05/13/22 05/13/22 aerosol inhaler Shortness Of Breath Or Wheezing amlodipine 5 mg tablet 5 mg PO HS 05/13/22 05/13/22 dorzolamide 22.3 mg-timolol 6.8 1 drp EACH EYE BID 05/13/22 05/13/22 mg/mL eye drops famotidine 40 mg tablet 40 mg PO DAILY 05/13/22 05/13/22 hydralazine 25 mg tablet 25 mg PO PRN PRN Hypertension 05/13/22 05/13/22 levofloxacin 500 mg tablet 750 mg PO DAILY 05/13/22 05/13/22 potassium chloride 20 mEq 20 meq PO DAILY 05/13/22 05/13/22 tablet,extended release(part/cryst) Allergies Allergy/AdvReac Type Severity Reaction Status Date / Time gadobenic acid Allergy Severe Dizziness Verified 03/08/22 08:00 [From CONTRAST-MRI] iohexol Allergy Severe Dizziness Verified 03/08/22 08:00 [From CONTRAST - CT, XRAY] propoxyphene AdvReac Mild N/V Verified 03/08/22 08:00 hydromorphone AdvReac Unknown Other Verified 03/08/22 08:00 Review of Systems Review of Systems: All systems reviewed & are unremarkable except as noted in HPI and below PMFSH Past Medical History Medical History Cataracts, bilateral Chronic back pain Chronic kidney disease, stage 3 DDD (degenerative disc disease) Diverticulitis Diverticulosis DM II (diabetes mellitus, type II), controlled Dysphagia Glaucoma H/O: HTN (hypertension) History of GI bleed History of pneumonia HLD (hyperlipidemia) Hx of gout Hx of hiatal hernia Hypothyroid Left rotator cuff tear OA (osteoarthritis) Osteopenia PUD (peptic ulcer disease) Screening for breast cancer Surgical History Surgical History H/O breast biopsy History of endoscopy History of partial colectomy History of repair of hiatal hernia Hx of bilateral cataract extraction Family History Family History Mother Family history of malignant neoplasm of breast in first degree relative, Onset Age: 45 Patient's mother is Sibling Family history of malignant neoplasm of breast in first degree relative Family history of renal failure Father Family history of congestive heart failure, Onset Age: 72 Patient's father is Social History Social History Smoking status: Never smoker Second hand tobacco smoke exposure: No Alcohol intake: never Substance use: never Substance use type: does not use Gender identity (if verbalized by the patient): Female Exam Const:
[2022-05-13 03:16] LABS: Lactic Acid Reflex 3.6 mmol/L (0.4-2.0)
[2022-05-13 03:19] LABS: CRP 0.6 mg/dL (0.0-0.9)
[2022-05-13 03:22] LABS: Add Urine Microscopic? YES; Appearance Urine Clear (Clear); Bilirubin Urine Negative (Negative); Blood Urine Negative (Negative); Color Urine Yellow (Yellow); Glucose Urine UA Negative (Negative); Ketones Urine Trace (Negative); Leukocyte Esterase Ur Trace (Negative); Nitrate Urine Negative (Negative); Protein Urine Negative (Negative); Specific Grav Ur 1.025 (1.010-1.020); Urobilinogen Urine 0.2 mg/dL (0.2-1.0)
[2022-05-13 03:27] LABS: Bacteria Urine Trace /hpf; RBC Urine 0-2 /hpf (0-2); Squamous Epithelial Cell Urine Many /hpf (Few); WBC Urine 0-3 /hpf (0-3)
[2022-05-13 03:31] LABS: Troponin I 9.7 ng/L (0.00-60.4)
[2022-05-13] MEDS: SODIUM CHLORIDE 0.9% IV 500 ML 999 ML IV CONT (04:05)
[2022-05-13] MEDS: ONDANSETRON INJ 4 MG/2 ML VIAL IV PUSH (04:07)
--- NOTE | 2022-05-13 04:30 | PC.NURSE ---
Pt resting c daughter at bedside, awaiting lab and CT results.
--- NOTE | 2022-05-13 04:57 | PC.NURSE ---
ERP in to discuss results c pt and daughter. Pt wanting to stay here at our facility if possible, VSS, ERP placing call to hospitalist.
--- NOTE | 2022-05-13 05:29 | PC.NURSE ---
POC to admit pt, orders obtained from ERP and Hospitalist.
--- NOTE | 2022-05-13 05:37 | PC.NURSE ---
Call placed to charge nurse larissa Steel to go to Rm [id number].
[2022-05-13] MEDS: SODIUM CHLORIDE 0.9% IV 1,000 ML 150 ML IV CONT (05:52)
[2022-05-13 06:00] LABS: Reflex Lactic Acid Yes or No Add Lactic
--- NOTE | 2022-05-13 06:05 | ADMGEN ---
This patient, Maggy Damon, was admitted to 2nd Floor Room 209-1. Patient oriented to hospital policies and general routines including ID bracelet, bed and alarms, visiting hours, pain management, procedures, bathroom and other care routines, personal items, smoking policy, room service/diet, and visiting hours. Information on how to activate the Rapid Response Team has been discussed. Patient are encouraged to report perceived risks to care and to ask questions if they do not understand what they are told or what they should do.
[2022-05-13 06:53] LABS: Lactic Acid 3.2 mmol/L (0.4-2.0)
[2022-05-13] MEDS: LEVOTHYROXINE SODIUM 75 MCG TABLET PO (06:55)
[2022-05-13] MEDS: LEVOTHYROXINE SODIUM 100 MCG TABLET PO (06:55)
[2022-05-13 07:55] LABS: Glucose Point of Care 154 mg/dl (65-105)
--- NOTE | 2022-05-13 09:34 | PC.NURSE ---
signed consent sent to [facility] for release of medical records.
[2022-05-13] MEDS: SIMVASTATIN 10 MG TABLET 40 MG BY MOUTH (09:45)
[2022-05-13] MEDS: CHOLECALCIFEROL 1,000 UNITS TABLET 1000 UNITS PO (09:45)
[2022-05-13] MEDS: POTASSIUM CHLORIDE 20 MEQ TABLET PO (09:45)
[2022-05-13] MEDS: TIMOLOL MALEATE 0.5% OP SOLN 5 ML BOTTLE 1 DROP EACH EYE ×2 (09:46→20:13)
[2022-05-13] MEDS: DORZOLAMIDE HCL 2% OPHTH DROPS 1 DROP EACH EYE ×2 (09:46→20:13)
[2022-05-13] MEDS: glipiZIDE 5 MG TABLET PO (09:46)
[2022-05-13] MEDS: FAMOTIDINE 20 MG TABLET 40 MG PO (09:46)
[2022-05-13] MEDS: allopurinoL 100 MG TABLET PO ×2 (09:46→16:48)
[2022-05-13] MEDS: PANTOPRAZOLE SODIUM IV 40 MG VIAL IV PUSH ×2 (12:06→20:20)
[2022-05-13 12:08] LABS: Glucose Point of Care 172 mg/dl (65-105)
--- NOTE | 2022-05-13 13:05 | PC.NURSE ---
ilene white wants us to finish this liter as a bolus and then make her a saline lock. iv rate turned to bolus rate (999ml/hr).
[2022-05-13] MEDS: METOCLOPRAMIDE HCL INJ 10 MG/2 ML VIAL 5 MG IV PUSH ×3 (13:34→23:55)
[2022-05-13 16:24] LABS: Glucose Point of Care 99 mg/dl (65-105)
--- NOTE | 2022-05-13 17:02 | PC.NURSE ---
pt requests to sit at bedside for dinner, visitor in room, pt denies any dizziness at this time, rails up, tray over lap, call light in reach
[2022-05-13] MEDS: LATANOPROST 0.005% OP SOLN 2.5 ML BTL 1 DROP EACH EYE (18:33)
[2022-05-13 20:25] LABS: Glucose Point of Care 90 mg/dl (65-105)
[2022-05-14] MEDS: LEVOTHYROXINE SODIUM 100 MCG TABLET PO (05:50)
[2022-05-14] MEDS: LEVOTHYROXINE SODIUM 75 MCG TABLET PO (05:50)
[2022-05-14] MEDS: METOCLOPRAMIDE HCL INJ 10 MG/2 ML VIAL 5 MG IV PUSH ×3 (05:53→18:03)
[2022-05-14 07:54] VITALS: BP 145/62; PULSE 52; RESP 16; TEMP 36.1; O2SAT 96
[2022-05-14 07:55] LABS: Glucose Point of Care 105 mg/dl (65-105)
[2022-05-14] MEDS: CHOLECALCIFEROL 1,000 UNITS TABLET 1000 UNITS PO (09:27)
[2022-05-14] MEDS: PANTOPRAZOLE SODIUM IV 40 MG VIAL IV PUSH ×2 (09:27→20:08)
[2022-05-14 09:28] VITALS: PULSE 52
[2022-05-14] MEDS: allopurinoL 100 MG TABLET PO ×2 (09:28→18:03)
[2022-05-14] MEDS: FAMOTIDINE 20 MG TABLET 40 MG PO (09:28)
[2022-05-14] MEDS: atenoloL 50 MG TABLET PO (09:28)
[2022-05-14] MEDS: SIMVASTATIN 10 MG TABLET 40 MG BY MOUTH (09:28)
[2022-05-14] MEDS: POTASSIUM CHLORIDE 20 MEQ TABLET PO (09:28)
[2022-05-14] MEDS: glipiZIDE 5 MG TABLET PO (09:28)
[2022-05-14] MEDS: TIMOLOL MALEATE 0.5% OP SOLN 5 ML BOTTLE 1 DROP EACH EYE ×2 (09:29→20:06)
[2022-05-14] MEDS: DORZOLAMIDE HCL 2% OPHTH DROPS 1 DROP EACH EYE ×2 (09:29→20:08)
--- NOTE | 2022-05-14 10:45 | PM.IMHP ---
H&P: HPI History of Present Illness Date/Time: 05/14/22 10:45 Chief Complaint: Nausea vomiting Narrative: This is a 81-year-old female who presented to the hospital emergency department with complaints of nausea and vomiting. Patient has a past medical history of chronic back pain, chronic kidney disease stage III, type 2 diabetes, dysphagia, hypertension, gout, hiatal hernia, hypothyroidism, osteoarthritis, peptic ulcer disease, sleep apnea and congestive heart failure. Patient was discharged from [facility] in [facility]. Patient was admitted for uncompensated congestive heart failure and treated for urinary tract infection. Upon discharge patient was given Levaquin shortly after patient developed nausea and vomiting possibly caused by antibiotics the following days she arrived at our emergency department. Patient being admitted for dehydration, urinary tract infection acute on chronic kidney injury and hypokalemia. Vital signs 96.9, 52, 16, 96% on room air, 145/62, WBCs 19.2, hemoglobin 10.7, hematocrit 34.3, platelets 416, sodium 130, potassium 3.9, BUN 42, creatinine 2.56, glucose 154,, lactic acid 3.2, chest x-ray and CT of the abdomen pelvis no acute findings. EKG sinus bradycardia with first-degree AV block heart rate 48 with prolonged QT . Physical therapy consulted recommend patient be placed in our swing bed. Patient notes that her nausea and vomiting has improved. She has no other complaints. The patient denies SOB, CP, palpitation, extremity numbness, lightheadedness, dizziness, constipation, diarrhea, chills, or fever. Review of Systems Review of Systems: A 14 organ system Review of Systems was performed and pertinent positives included in the HPI, otherwise remaining ROS is negative. [facility] Past Medical History Medical History Cataracts, bilateral Chronic back pain Chronic kidney disease, stage 3 DDD (degenerative disc disease) Diverticulitis Diverticulosis DM II (diabetes mellitus, type II), controlled Dysphagia Glaucoma H/O: HTN (hypertension) History of GI bleed History of pneumonia HLD (hyperlipidemia) Hx of gout Hx of hiatal hernia Hypothyroid Left rotator cuff tear OA (osteoarthritis) Osteopenia PUD (peptic ulcer disease) Screening for breast cancer Surgical History Surgical History H/O breast biopsy History of endoscopy History of partial colectomy History of repair of hiatal hernia Hx of bilateral cataract extraction Family History Family History Mother Family history of malignant neoplasm of breast in first degree relative, Onset Age: 45 Patient's mother is Sibling Family history of malignant neoplasm of breast in first degree relative Family history of renal failure Father Family history of congestive heart failure, Onset Age: 72 Patient's father is Social History Social History Smoking status: Never smoker Second hand tobacco smoke exposure: No Alcohol intake: never Substance use: never Substance use type: does not use Gender identity (if verbalized by the patient): Female Spiritual care concerns: No Meds Home Medications and Allergies Home Medications Medication Instructions Recorded Confirmed Type cholecalciferol (vitamin D3) 25 25 mcg PO DAILY 04/09/20 05/13/22 History mcg (1,000 unit) tablet latanoprost 0.005 % eye drops 1 drop ophthalmic (eye) QPM 04/09/20 05/13/22 History verapamil 240 mg tablet,extended See Rx Instructions .Route 12/06/21 05/13/22 Rx release .COMPLEX #180 tabs allopurinol 100 mg tablet 100 mg PO BID #180 tabs 01/03/22 05/13/22 Rx clonidine HCl 0.2 mg tablet See Rx Instructions .Route 02/11/22 05/13/22 Rx .COMPLEX #180 tabs metformin 500 mg tablet See Rx I
[2022-05-14 11:05] LABS: Hematocrit 32.3 % (35.0-42.0); Hemoglobin 10.1 g/dL (11.7-13.8); Mean Corpuscular HGB Conc 31.3 g/dL (32.0-36.0); Mean Corpuscular Hemoglobin 29.8 pg (27.0-31.0); Mean Corpuscular Volume 95.3 fL (78.0-102.0); Mean Platelet Volume 9.5 fl (9.2-11.8); Platelet Count Result 417 K/mm3 (150-420); Red Blood Count 3.39 M/mm3 (4.20-5.40); White Blood Count 14.4 K/mm3 (4.8-10.8)
[2022-05-14 11:23] LABS: Alanine Aminotransferase 13 U/L (14-59); Albumin Level 2.7 g/dL (3.4-5.0); Alkaline Phosphatase 94 U/L (46-116); Anion Gap 4 mmol/L (8-16); Aspartate Amino Transferase 11 U/L (15-37); Bilirubin,Total 0.2 mg/dL (0.00-1.00); Blood Urea Nitrogen 33 mg/dL (7-18); Calcium 8.8 mg/dL (8.5-10.1); Carbon Dioxide 32 mmol/L (21-32); Chloride 98 mmol/L (98-108); Estimated CRCL calculation 24 ml/min; Estimated Glomerular Filt Rate 23; Glucose 113 mg/dL (70-99); Osmolality Calculated 286 mOsm/kg (285-295); Potassium 3.9 mmol/L (3.5-5.1); Sodium 134 mmol/L (136-145); Total Protein 6.2 g/dL (6.4-8.2)
--- NOTE | 2022-05-14 13:05 | PC.NURSE ---
RT in room to discuss Bipap with patient. Patient refuses to wear, states I don't wear it at home, why would I wear it here? Марина RADIUS GRINDER notified.
[2022-05-14] MEDS: SODIUM CHLORIDE 0.9% IV 1,000 ML 999 ML IV CONT (13:35)
[2022-05-14 16:00] VITALS: BP 185/65; PULSE 60; RESP 17; TEMP 36.1; O2SAT 91
[2022-05-14 17:03] LABS: Glucose Point of Care 72 mg/dl (65-105)
--- NOTE | 2022-05-14 17:42 | PC.NURSE ---
Charting completed by Oumou Cox, student nurse under this nurses supervision. All charting has been reviewed and agreed with for this shift.
[2022-05-14] MEDS: LATANOPROST 0.005% OP SOLN 2.5 ML BTL 1 DROP EACH EYE (18:03)
[2022-05-14 19:37] VITALS: PULSE 60; RESP 17; O2SAT 91
[2022-05-14] MEDS: traZODone HCL 50 MG TABLET PO (20:06)
[2022-05-14] MEDS: amLODIPine BESYLATE 5 MG TABLET PO (20:07)
[2022-05-14] MEDS: cloNIDine HCL 0.2 MG TABLET PO (20:07)
[2022-05-14 20:15] LABS: Glucose Point of Care 133 mg/dl (65-105)
[2022-05-15] VITALS: BP 120/47; PULSE 64; RESP 18; TEMP 36.4; O2SAT 92
[2022-05-15] MEDS: METOCLOPRAMIDE HCL INJ 10 MG/2 ML VIAL 5 MG IV PUSH ×4 (00:24→17:51)
[2022-05-15 05:27] LABS: Hematocrit 31.9 % (35.0-42.0); Hemoglobin 9.7 g/dL (11.7-13.8); Mean Corpuscular HGB Conc 30.4 g/dL (32.0-36.0); Mean Corpuscular Hemoglobin 29.1 pg (27.0-31.0); Mean Corpuscular Volume 95.8 fL (78.0-102.0); Mean Platelet Volume 9.7 fl (9.2-11.8); Platelet Count Result 415 K/mm3 (150-420); Red Blood Count 3.33 M/mm3 (4.20-5.40); White Blood Count 12.8 K/mm3 (4.8-10.8)
[2022-05-15] MEDS: LEVOTHYROXINE SODIUM 100 MCG TABLET PO (05:27)
[2022-05-15] MEDS: LEVOTHYROXINE SODIUM 75 MCG TABLET PO (05:27)
[2022-05-15 06:12] LABS: Alanine Aminotransferase 16 U/L (14-59); Albumin Level 2.6 g/dL (3.4-5.0); Alkaline Phosphatase 89 U/L (46-116); Anion Gap 4 mmol/L (8-16); Aspartate Amino Transferase 12 U/L (15-37); Bilirubin,Total 0.2 mg/dL (0.00-1.00); Blood Urea Nitrogen 30 mg/dL (7-18); Calcium 8.5 mg/dL (8.5-10.1); Carbon Dioxide 31 mmol/L (21-32); Chloride 103 mmol/L (98-108); Estimated CRCL calculation 28 ml/min; Estimated Glomerular Filt Rate 26; Glucose 108 mg/dL (70-99); Osmolality Calculated 293 mOsm/kg (285-295); Potassium 4.1 mmol/L (3.5-5.1); Sodium 138 mmol/L (136-145); Total Protein 6.1 g/dL (6.4-8.2)
[2022-05-15 08:00] VITALS: BP 148/64; PULSE 60; RESP 20; TEMP 36.2; O2SAT 93
[2022-05-15] MEDS: PANTOPRAZOLE SODIUM IV 40 MG VIAL IV PUSH ×2 (09:44→20:59)
[2022-05-15] MEDS: cloNIDine HCL 0.2 MG TABLET PO ×2 (09:44→20:58)
[2022-05-15] MEDS: DORZOLAMIDE HCL 2% OPHTH DROPS 1 DROP EACH EYE ×2 (09:44→20:57)
[2022-05-15] MEDS: CHOLECALCIFEROL 1,000 UNITS TABLET 1000 UNITS PO (09:44)
[2022-05-15] MEDS: SIMVASTATIN 10 MG TABLET 40 MG BY MOUTH (09:44)
[2022-05-15] MEDS: POTASSIUM CHLORIDE 20 MEQ TABLET PO (09:44)
[2022-05-15] MEDS: TIMOLOL MALEATE 0.5% OP SOLN 5 ML BOTTLE 1 DROP EACH EYE ×2 (09:44→20:59)
[2022-05-15 09:45] VITALS: PULSE 60
[2022-05-15] MEDS: allopurinoL 100 MG TABLET PO ×2 (09:45→17:51)
[2022-05-15] MEDS: atenoloL 50 MG TABLET PO (09:45)
[2022-05-15] MEDS: glipiZIDE 5 MG TABLET PO (09:45)
[2022-05-15] MEDS: FAMOTIDINE 20 MG TABLET 40 MG PO (09:45)
--- NOTE | 2022-05-15 10:03 | P.PN_ITS ---
Progress Note: A&P Assessment and Plan (1) Acute UTI: Code(s): N39.0 - Urinary tract infection, site not specified Status: Acute Assessment and Plan: * waiting on c&s from outside hospital * wbc 19.2>14.4>12.8 (2) Acute kidney injury superimposed on CKD: Code(s): N17.9 - Acute kidney failure, unspecified; N18.9 - Chronic kidney disease, unspecified Status: Acute Assessment and Plan: * Acute on chronic * Cr 2.56>2.11>1.85 * Avoid nephrotoxic agents * Renal dose all medication * Will adjust medication as needed (3) Essential (primary) hypertension: Code(s): I10 - Essential (primary) hypertension Status: Acute Assessment and Plan: * stable * Continue home medication amlodipine atenolol clonidine and verapamil * Adjust medication as needed * Vital signs as ordered (4) Gastric ulcer, unspecified as acute or chronic, without hemorrhage or perforation: Code(s): K25.9 - Gastric ulcer, unspecified as acute or chronic, without hemorrhage or perforation Status: Acute Assessment and Plan: * continue pantoprazole (5) Hypothyroidism, unspecified: Code(s): E03.9 - Hypothyroidism, unspecified Status: Acute Assessment and Plan: * continue levothyroxine 175 mcg daily (6) Mixed hyperlipidemia: Code(s): E78.2 - Mixed hyperlipidemia Status: Acute Assessment and Plan: * Continue statins (7) Primary osteoarthritis involving multiple joints: Code(s): M15.0 - Primary generalized (osteo)arthritis Status: Acute Assessment and Plan: * Continue pain medication (8) Type 2 diabetes mellitus with complication, without long-term current use of insulin: Code(s): E11.8 - Type 2 diabetes mellitus with unspecified complications Status: Acute Assessment and Plan: * A1c 02/19/2022 6.5 * BS 108 * Continue Accu-Cheks with sliding scale hypoglycemic protocol * Continue diabetic diet * Will adjust medication as needed (9) Nausea & vomiting: Code(s): R11.2 - Nausea with vomiting, unspecified Status: Acute Assessment and Plan: * Resolved * Discontinue Levaquin * Continue Compazine (10) Hypernatremia: Code(s): E87.0 - Hyperosmolality and hypernatremia Status: Acute Assessment and Plan: * sodium 130>134>138 (11) Weakness: Code(s): R53.1 - Weakness Status: Acute Assessment and Plan: ? Exhibit tolerance during physical activity as evidenced by a normal fluctuation of vital signs during physical activity. ? Patient will be ability to perform required activities of daily living. ? Provide appropriate nutrition for healing and strength. ? Use appropriate to prevent falls. ? Continue physical therapy/occupational therapy. Subjective Date/time seen: 05/15/22 10:03 Interval history: Patient has no complaints her nausea and vomiting has resolved she slept well overnight and she is tolerating all her meals Review of Systems Review of Systems: A 14 organ system Review of Systems was performed and pertinent positives included in the HPI, otherwise remaining ROS is negative. Exam Narrative: GENERAL: pale in color, in no apparent distress. HEAD: normocephalic, atraumatic. EYES: PERRL. Sclera clear/white. Vision is grossly intact. EARS: External ears normal, auditory canals clear and without drainage, TMs normal without perforation. Hearing grossly intact. NOSE: External nose n
--- NOTE | 2022-05-15 10:03 | WPDPN ---
Progress Note: A&P Assessment and Plan (1) Acute UTI: Code(s): N39.0 - Urinary tract infection, site not specified Status: Acute Assessment and Plan: waiting on c&s from outside hospital wbc 19.2>14.4>12.8 (2) Acute kidney injury superimposed on CKD: Code(s): N17.9 - Acute kidney failure, unspecified; N18.9 - Chronic kidney disease, unspecified Status: Acute Assessment and Plan: Acute on chronic Cr 2.56>2.11>1.85 Avoid nephrotoxic agents Renal dose all medication Will adjust medication as needed (3) Essential (primary) hypertension: Code(s): I10 - Essential (primary) hypertension Status: Acute Assessment and Plan: stable Continue home medication amlodipine atenolol clonidine and verapamil Adjust medication as needed Vital signs as ordered (4) Gastric ulcer, unspecified as acute or chronic, without hemorrhage or perforation: Code(s): K25.9 - Gastric ulcer, unspecified as acute or chronic, without hemorrhage or perforation Status: Acute Assessment and Plan: continue pantoprazole (5) Hypothyroidism, unspecified: Code(s): E03.9 - Hypothyroidism, unspecified Status: Acute Assessment and Plan: continue levothyroxine 175 mcg daily (6) Mixed hyperlipidemia: Code(s): E78.2 - Mixed hyperlipidemia Status: Acute Assessment and Plan: Continue statins (7) Primary osteoarthritis involving multiple joints: Code(s): M15.0 - Primary generalized (osteo)arthritis Status: Acute Assessment and Plan: Continue pain medication (8) Type 2 diabetes mellitus with complication, without long-term current use of insulin: Code(s): E11.8 - Type 2 diabetes mellitus with unspecified complications Status: Acute Assessment and Plan: A1c 02/19/2022 6.5 BS 108 Continue Accu-Cheks with sliding scale hypoglycemic protocol Continue diabetic diet Will adjust medication as needed (9) Nausea & vomiting: Code(s): R11.2 - Nausea with vomiting, unspecified Status: Acute Assessment and Plan: Resolved Discontinue Levaquin Continue Compazine (10) Hypernatremia: Code(s): E87.0 - Hyperosmolality and hypernatremia Status: Acute Assessment and Plan: sodium 130>134>138 (11) Weakness: Code(s): R53.1 - Weakness Status: Acute Assessment and Plan: ? Exhibit tolerance during physical activity as evidenced by a normal fluctuation of vital signs during physical activity. ? Patient will be ability to perform required activities of daily living. ? Provide appropriate nutrition for healing and strength. ? Use appropriate to prevent falls. ? Continue physical therapy/occupational therapy. Subjective Date/time seen: 05/15/22 10:03 Interval history: Patient has no complaints her nausea and vomiting has resolved she slept well overnight and she is tolerating all her meals Review of Systems Review of Systems: A 14 organ system Review of Systems was performed and pertinent positives included in the HPI, otherwise remaining ROS is negative. Exam Narrative: GENERAL: pale in color, in no apparent distress. HEAD: normocephalic, atraumatic. EYES: PERRL. Sclera clear/white. Vision is grossly intact. EARS: External ears normal, auditory canals clear and without drainage, TMs normal without perforation. Hearing grossly intact. NOSE: External nose normal with no obvious nasal discharge, nares without redness, no rhinorrhea. THROAT: Mucous membranes moist, posterior pharynx clear. NECK: Neck supple, non-tender without lymphadenopathy, masses or thyromegaly. CARDIOVASCULAR: Regular rate and rhythm without murmurs, gallops, or rubs. RESPIRATORY: Clear to auscultation. Breath sounds equal bilaterally. No wheezes, rales, or rhonchi. GASTROINTESTINAL: Abdomen soft, non-tender, nondistended. Bowel sounds are active. No hepato-splenomegaly, or pa
[2022-05-15 12:00] LABS: Glucose Point of Care 174 mg/dl (65-105)
[2022-05-15 16:00] VITALS: BP 148/64; PULSE 60; RESP 20; TEMP 36.2; O2SAT 93
[2022-05-15] MEDS: LATANOPROST 0.005% OP SOLN 2.5 ML BTL 1 DROP EACH EYE (17:51)
[2022-05-15 20:34] LABS: Glucose Point of Care 154 mg/dl (65-105)
[2022-05-15] MEDS: traZODone HCL 50 MG TABLET PO (20:57)
[2022-05-15] MEDS: amLODIPine BESYLATE 5 MG TABLET PO (20:58)
[2022-05-15 21:02] LABS: Glucose Point of Care 244 mg/dl (65-105)
[2022-05-16] VITALS: BP 137/54; PULSE 60; RESP 18; TEMP 36.6; O2SAT 90
[2022-05-16] MEDS: METOCLOPRAMIDE HCL INJ 10 MG/2 ML VIAL 5 MG IV PUSH ×2 (00:40→06:22)
[2022-05-16 05:21] LABS: Hematocrit 33.9 % (35.0-42.0); Hemoglobin 10.2 g/dL (11.7-13.8); Mean Corpuscular HGB Conc 30.1 g/dL (32.0-36.0); Mean Corpuscular Hemoglobin 29.6 pg (27.0-31.0); Mean Corpuscular Volume 98.3 fL (78.0-102.0); Mean Platelet Volume 9.7 fl (9.2-11.8); Platelet Count Result 397 K/mm3 (150-420); Red Blood Count 3.45 M/mm3 (4.20-5.40); Red Cell Distribution Width 16.2 % (11.6-14.4); White Blood Count 11.6 K/mm3 (4.8-10.8)
[2022-05-16 05:36] LABS: Alanine Aminotransferase 18 U/L (14-59); Albumin Level 2.7 g/dL (3.4-5.0); Alkaline Phosphatase 90 U/L (46-116); Anion Gap 4 mmol/L (8-16); Aspartate Amino Transferase 15 U/L (15-37); Bilirubin,Total 0.2 mg/dL (0.00-1.00); Blood Urea Nitrogen 23 mg/dL (7-18); Calcium 8.7 mg/dL (8.5-10.1); Carbon Dioxide 30 mmol/L (21-32); Chloride 104 mmol/L (98-108); Estimated CRCL calculation 31 ml/min; Estimated Glomerular Filt Rate 31; Glucose 131 mg/dL (70-99); Osmolality Calculated 291 mOsm/kg (285-295); Potassium 4.3 mmol/L (3.5-5.1); Sodium 138 mmol/L (136-145); Total Protein 6.4 g/dL (6.4-8.2)
[2022-05-16] MEDS: LEVOTHYROXINE SODIUM 100 MCG TABLET PO (06:21)
[2022-05-16] MEDS: LEVOTHYROXINE SODIUM 75 MCG TABLET PO (06:21)
[2022-05-16 08:00] VITALS: BP 150/54; PULSE 51; RESP 14; TEMP 36; O2SAT 92
[2022-05-16] MEDS: allopurinoL 100 MG TABLET PO (08:15)
[2022-05-16] MEDS: glipiZIDE 5 MG TABLET PO (08:20)
[2022-05-16] MEDS: POTASSIUM CHLORIDE 20 MEQ TABLET PO (08:24)
--- NOTE | 2022-05-16 09:14 | PM.DS ---
DS: Admitting Diagnosis Discharge Date 05/16/2022 Admitting Diagnosis UTI, nausea vomiting , acute on chronic kidney injury This is a 81-year-old female who presented to the hospital emergency department with complaints of nausea and vomiting.? Patient has a past medical history of chronic back pain, chronic kidney disease stage III, type 2 diabetes, dysphagia, hypertension, gout, hiatal hernia, hypothyroidism, osteoarthritis, peptic ulcer disease, sleep apnea and congestive heart failure.? Patient was discharged from [facility] in [facility] Patient was admitted for uncompensated congestive heart failure and treated for urinary tract infection.? Upon discharge patient was given Levaquin shortly after patient developed nausea and vomiting possibly caused by antibiotics the following days she arrived at our emergency department.? Patient admitted for dehydration, urinary tract infection acute on chronic kidney injury and hypokalemia. Patient treated with Rocephin for her urinary tract infection this day her nausea and vomiting has resolved. Family members hoping the patient could swing did a peer to peer with insurance company patient did not qualify for swing bed due to her ability to ambulate 40 feet with standby assist. Discharge instructions reviewed with patient, as well as provided in writing per nursing staff. The instructions also include specific and strict return/GO TO THE ER as well as f/u information. All questions have been answered, and the patient and/or family deny any further questions with discharge and discharge plan. The patient denies SOB, CP, palpitation, extremity numbness, lightheadedness, dizziness, constipation, diarrhea, chills, or fever. DS: Discharge Diagnosis Discharge Diagnosis (1) Acute UTI: Code(s): N39.0 - Urinary tract infection, site not specified Status: Acute Assessment and Plan: UA culture no growth wbc 19.2>14.4>12.8>11.6 (2) Acute kidney injury superimposed on CKD: Code(s): N17.9 - Acute kidney failure, unspecified; N18.9 - Chronic kidney disease, unspecified Status: Acute Assessment and Plan: Acute on chronic Cr 2.56>2.11>1.85>1.62 patient baseline creatinine 1.40-1.50 point Repeat lab in 1 week with results going to primary care physician (3) Essential (primary) hypertension: Code(s): I10 - Essential (primary) hypertension Status: Acute Assessment and Plan: stable Continue home medication amlodipine atenolol clonidine and verapamil (4) Gastric ulcer, unspecified as acute or chronic, without hemorrhage or perforation: Code(s): K25.9 - Gastric ulcer, unspecified as acute or chronic, without hemorrhage or perforation Status: Acute Assessment and Plan: continue pantoprazole (5) Hypothyroidism, unspecified: Code(s): E03.9 - Hypothyroidism, unspecified Status: Acute Assessment and Plan: continue levothyroxine 175 mcg daily (6) Mixed hyperlipidemia: Code(s): E78.2 - Mixed hyperlipidemia Status: Acute Assessment and Plan: Continue statins (7) Primary osteoarthritis involving multiple joints: Code(s): M15.0 - Primary generalized (osteo)arthritis Status: Acute Assessment and Plan: Continue pain medication (8) Type 2 diabetes mellitus with complication, without long-term current use of insulin: Code(s): E11.8 - Type 2 diabetes mellitus with unspecified complications Status: Acute Assessment and Plan: A1c 02/19/2022 6.5 Continue home medication (9) Nausea & vomiting: Code(s): R11.2 - Nausea with vomiting, unspecified Status: Acute Assessment and Plan: Resolved Discontinue Levaquin Continue Compazine along with the antiboictic treatment (10) Hypernatremia: Code(s): E87.0 - Hyperosmolality and hypernatremia Status: Acute Assessment and Plan: sodium 130>134>138>138
[2022-05-16] MEDS: SIMVASTATIN 10 MG TABLET 40 MG BY MOUTH (09:20)
[2022-05-16] MEDS: PANTOPRAZOLE SODIUM IV 40 MG VIAL IV PUSH (09:24)
[2022-05-16] MEDS: TOLNAFTATE 1% POWDER 45 GM BTL 1 APPLIC TOPICAL (09:24)
[2022-05-16] MEDS: FAMOTIDINE 20 MG TABLET 40 MG PO (09:25)
[2022-05-16 09:26] VITALS: PULSE 78
[2022-05-16] MEDS: atenoloL 50 MG TABLET PO (09:26)
[2022-05-16] MEDS: CHOLECALCIFEROL 1,000 UNITS TABLET 1000 UNITS PO (09:27)
[2022-05-16] MEDS: DORZOLAMIDE HCL 2% OPHTH DROPS 1 DROP EACH EYE (09:28)
[2022-05-16] MEDS: cloNIDine HCL 0.2 MG TABLET PO (09:28)
[2022-05-16] MEDS: TIMOLOL MALEATE 0.5% OP SOLN 5 ML BOTTLE 1 DROP EACH EYE (09:28)
[2022-05-16 11:30] LABS: Glucose Point of Care 165 mg/dl (65-105)
--- NOTE | 2022-05-16 13:07 | PC.NURSE ---
Pt discharged to home with family. Pt instructed regarding medications: dose, time, possible SE and purpose. Pt instructed regarding skin care under her breast and belly. Pt instructed regarding follow up appointments and lab draw. Pt and CG verbalized understanding of all instructions.
--- NOTE | 2022-05-18 14:50 | PC.NURSE ---
Pt states she received and understood her discharge instructions. Pt has no other comments.
== END 2022-05-16 12:00 | disposition home health service (06) ==
LOC: CHSED 05:30 → CHS2ND 05:47
PROVIDERS: Nurse Practitioner; Admitting Provider Internal Medicine; Emergency Provider Emergency Medicine; PCP Internal Medicine; Visit Provider Internal Medicine
DX: N39.0 Urinary tract infection, site not specified (principal); R11.2 Nausea with vomiting, unspecified; E86.0 Dehydration; N17.9 Acute kidney failure, unspecified; N18.30 Chronic kidney disease, stage 3 unspecified; I13.0 Hypertensive heart and chronic kidney disease with heart failure and stage 1 through stage 4 chronic kidney disease, or unspecified chronic kidney disease; E11.22 Type 2 diabetes mellitus with diabetic chronic kidney disease; E78.5 Hyperlipidemia, unspecified; K25.9 Gastric ulcer, unspecified as acute or chronic, without hemorrhage or perforation; K44.9 Diaphragmatic hernia without obstruction or gangrene; K57.30 Diverticulosis of large intestine without perforation or abscess without bleeding; M15.0 Primary generalized (osteo)arthritis; M85.80 Other specified disorders of bone density and structure, unspecified site; M54.9 Dorsalgia, unspecified; G89.29 Other chronic pain; H40.9 Unspecified glaucoma; R53.1 Weakness; Z90.49 Acquired absence of other specified parts of digestive tract
CPT/HCPCS: 36415; 71045; 74176; 80053; 81001; 82948; 83605; 83880; 84484; 85025; 85027; 86140; 87040; 87086; 93005; 96361; 96365; 96366; 96375; 96376; 97161; 97165; 97530; 99285; A9270; C9113; G0378; J0696; J2405; J2765; J7030; J7040

== ENCOUNTER 2022-05-24 11:17 | Outpatient (CLI) | payer MEDICARE, SELFPAY ==
[2022-05-24 12:05] LABS: Appearance Urine Clear (Clear); Bilirubin Urine Negative (Negative); Blood Urine Negative (Negative); Glucose Urine UA Negative (Negative); Ketones Urine Negative (Negative); Leukocyte Esterase Ur Trace LEU/UL (Negative); Nitrate Urine Negative (Negative); Protein Urine Negative (Negative); Urobilinogen Urine 0.2 mg/dL (0.2-1.0)
[2022-05-24 12:10] LABS: Add Urine Microscopic? YES; Bacteria Urine Trace /hpf; Color Urine Light Yellow (Yellow); RBC Urine None seen /hpf (0-2); Squamous Epithelial Cell Urine Few /hpf (Few); WBC Urine 0-3 /hpf (0-3)
[2022-05-24 13:12] LABS: Alanine Aminotransferase 13 U/L (14-59); Albumin Level 3.2 g/dL (3.4-5.0); Alkaline Phosphatase 96 U/L (46-116); Anion Gap 9 mmol/L (8-16); Aspartate Amino Transferase 10 U/L (15-37); Bilirubin,Total 0.2 mg/dL (0.00-1.00); Blood Urea Nitrogen 21 mg/dL (7-18); Calcium 9.3 mg/dL (8.5-10.1); Carbon Dioxide 30 mmol/L (21-32); Chloride 105 mmol/L (98-108); Estimated Glomerular Filt Rate 29; Glucose 78 mg/dL (70-99); Osmolality Calculated 300 mOsm/kg (285-295); Potassium 5.2 mmol/L (3.5-5.1); Sodium 144 mmol/L (136-145); Total Protein 6.6 g/dL (6.4-8.2)
== END 2022-05-24 11:18 | disposition home or self-care (01) ==
LOC: CHSLAB 11:19
PROVIDERS: Nurse Practitioner; PCP Internal Medicine; Visit Provider Internal Medicine
DX: N17.9 Acute kidney failure, unspecified (principal)
CPT/HCPCS: 36415; 80053; 81001

== ENCOUNTER 2022-09-10 07:17 | Outpatient (CLI) | payer MEDICARE, SELFPAY ==
[2022-09-10 08:23] LABS: Alanine Aminotransferase 9 U/L (14-59); Albumin Level 3.2 g/dL (3.4-5.0); Alkaline Phosphatase 96 U/L (46-116); Anion Gap 8 mmol/L (8-16); Aspartate Amino Transferase 12 U/L (15-37); Bilirubin,Total 0.2 mg/dL (0.00-1.00); Blood Urea Nitrogen 22 mg/dL (7-18); Calcium 9.4 mg/dL (8.5-10.1); Carbon Dioxide 32 mmol/L (21-32); Chloride 101 mmol/L (98-108); Cholesterol 135 mg/dL (0-200); Estimated Glomerular Filt Rate 29; Glucose 101 mg/dL (70-99); HDL Direct 50 mg/dL (40-60); LDL Cholesterol Calculated 41 mg/dL (<130); Osmolality Calculated 295 mOsm/kg (285-295); Potassium 4.6 mmol/L (3.5-5.1); Sodium 141 mmol/L (136-145); Thyroid Stimulating Hormone 1.01 uIU/mL (0.36-3.74); Total Protein 7.1 g/dL (6.4-8.2); Triglycerides 220 mg/dL (0-150); Uric Acid 4.3 mg/dL (2.6-6.0)
[2022-09-14 12:45] LABS: Vitamin D 25 Hydroxy 31 ng/mL (30-100)
== END 2022-09-10 07:18 | disposition home or self-care (01) ==
LOC: CHSLAB 07:18
PROVIDERS: PCP Internal Medicine; Visit Provider Internal Medicine
DX: M10.9 Gout, unspecified (principal); E55.9 Vitamin D deficiency, unspecified; Z79.899 Other long term (current) drug therapy; I10 Essential (primary) hypertension; E03.9 Hypothyroidism, unspecified; E78.5 Hyperlipidemia, unspecified
CPT/HCPCS: 36415; 80053; 80061; 82306; 84443; 84550

== ENCOUNTER 2022-09-13 10:01 | Outpatient (CLI) | payer MEDICARE, SELFPAY | END 2022-09-13 10:02 | disposition home or self-care (01) | LOC: CHSLAB 10:03 | PROVIDERS: PCP Internal Medicine; Visit Provider Nurse Practitioner | DX: E11.8 Type 2 diabetes mellitus with unspecified complications (principal) | CPT/HCPCS: 36415; 83036 ==

== ENCOUNTER 2022-11-21 15:51 | Outpatient (CLI) | payer MEDICARE, SELFPAY ==
[2022-11-21 16:44] LABS: Albumin Level 3.2 g/dL (3.4-5.0); Anion Gap 11 mmol/L (8-16); Blood Urea Nitrogen 20 mg/dL (7-18); Calcium 9.4 mg/dL (8.5-10.1); Carbon Dioxide 28 mmol/L (21-32); Chloride 102 mmol/L (98-108); Estimated Glomerular Filt Rate 38; Glucose 120 mg/dL (70-99); Osmolality Calculated 295 mOsm/kg (285-295); Phosphorus 4.8 mg/dL (2.6-4.7); Potassium 5.4 mmol/L (3.5-5.1); Sodium 141 mmol/L (136-145)
[2022-11-24 15:08] LABS: Albumin 3.4 g/dL (3.8-4.8); Alpha 1 Globulin 0.5 g/dL (0.2-0.3); Alpha 2 Globulin 1.4 g/dL (0.5-0.9); Beta 1 Globulin 0.5 g/dL (0.4-0.6); Gamma Globulin 0.8 g/dL (0.8-1.7); Protein, Total 7.2 g/dL (6.1-8.1)
[2022-11-24 16:51] LABS: Parathyroid Intact 58 pg/mL (14-64)
[2022-11-26 14:25] LABS: Creatinine, Random Urine 63 mg/dL (20-275); Total Protein/Creatinine Ratio 206 mg/g creat (24-184)
[2022-11-27 20:46] LABS: Vitamin D 25 Hydroxy 43 ng/mL (30-100)
== END 2022-11-21 15:52 | disposition home or self-care (01) ==
LOC: CHSLAB 15:52
PROVIDERS: PCP Internal Medicine; Visit Provider Internal Medicine Nephrology
DX: E11.22 Type 2 diabetes mellitus with diabetic chronic kidney disease (principal); E55.9 Vitamin D deficiency, unspecified; I12.9 Hypertensive chronic kidney disease with stage 1 through stage 4 chronic kidney disease, or unspecified chronic kidney disease; N25.81 Secondary hyperparathyroidism of renal origin; N18.4 Chronic kidney disease, stage 4 (severe)
CPT/HCPCS: 36415; 80069; 82306; 82570; 83970; 84155; 84156; 84165; 84166

== ENCOUNTER 2022-11-25 07:52 | Outpatient (CLI) | payer MEDICARE, SELFPAY ==
--- NOTE | ~2022-11-25 | MM_ITS ---
EXAMINATION: MM screening adrian BI w [facility] HISTORY: Screening TECHNIQUE: Only left CCA examination is performed. Patient could not continue examination due to rash under her breast. Patient will return when her clinical condition permits. COMPARISON: Comparison to multiple prior studies sequentially, with oldest reviewed study dated 02/2017. BREAST PARENCHYMAL COMPOSITION: Breast composition is almost entirely fatty FINDINGS: Nondiagnostic study. IMPRESSION: 1. Nondiagnostic study. Recommend complete examination when the patient's condition permits. Reviewed, dictated and finalized at location A. IMPRESSION: 1. Nondiagnostic study. Recommend complete examination when the patient's condi tion permits.
--- NOTE | ~2022-11-25 | US_ITS ---
EXAMINATION: US renal BI DATE: 11/25/2022 08:29 INDICATION: Chronic kidney disease TECHNIQUE: Multiple ultrasound grayscale images of the kidneys were obtained. COMPARISON: None. FINDINGS: The right kidney measures 11.3 x 4.2 x 3.9 cm. The left kidney measures 10.4 x 6.1 x 4.2 cm. The kidn eys demonstrate normal echogenicity. There is no hydronephrosis in either kidney. No stones identifi ed. The bladder is normal. IMPRESSION: 1. Normal kidneys without hydronephrosis. Reviewed, dictated and finalized at location A.
== END 2022-11-25 07:53 | disposition home or self-care (01) ==
LOC: CHSIMG 07:53
PROVIDERS: PCP Internal Medicine; Visit Provider Internal Medicine
DX: Z12.31 Encounter for screening mammogram for malignant neoplasm of breast (principal); E11.22 Type 2 diabetes mellitus with diabetic chronic kidney disease; E55.9 Vitamin D deficiency, unspecified; I12.9 Hypertensive chronic kidney disease with stage 1 through stage 4 chronic kidney disease, or unspecified chronic kidney disease; N25.81 Secondary hyperparathyroidism of renal origin; N18.4 Chronic kidney disease, stage 4 (severe)
CPT/HCPCS: 76775; 77063; 77067

== ENCOUNTER 2022-12-06 16:06 | Outpatient (CLI) | payer MEDICARE, SELFPAY ==
[2022-12-06 16:50] LABS: Magnesium 1.9 mg/dL (1.8-2.4)
[2022-12-07 10:20] LABS: Anion Gap 11 mmol/L (8-16); Blood Urea Nitrogen 24 mg/dL (7-18); Calcium 9.6 mg/dL (8.5-10.1); Carbon Dioxide 30 mmol/L (21-32); Chloride 104 mmol/L (98-108); Estimated Glomerular Filt Rate 29; Glucose 80 mg/dL (70-99); Osmolality Calculated 303 mOsm/kg (285-295); Potassium 4.8 mmol/L (3.5-5.1); Sodium 145 mmol/L (136-145)
== END 2022-12-06 16:07 | disposition home or self-care (01) ==
LOC: CHSLAB 16:08
PROVIDERS: PCP Nurse Practitioner; Visit Provider Nurse Practitioner Family
DX: E87.5 Hyperkalemia (principal)
CPT/HCPCS: 36415; 80048; 83735

== ENCOUNTER 2023-02-24 10:27 | Outpatient (CLI) | payer MEDICARE, SELFPAY ==
[2023-02-24 10:51] LABS: Hemoglobin A1C 6.3 % (<5.7)
[2023-02-24 11:29] LABS: Alanine Aminotransferase 16 U/L (14-59); Albumin Level 3.1 g/dL (3.4-5.0); Alkaline Phosphatase 112 U/L (46-116); Anion Gap 6 mmol/L (8-16); Aspartate Amino Transferase 15 U/L (15-37); Bilirubin,Total 0.1 mg/dL (0.00-1.00); Blood Urea Nitrogen 23 mg/dL (7-18); Calcium 9.3 mg/dL (8.5-10.1); Carbon Dioxide 33 mmol/L (21-32); Chloride 105 mmol/L (98-108); Cholesterol 110 mg/dL (0-200); Estimated Glomerular Filt Rate 30; Glucose 94 mg/dL (70-99); HDL Direct 44 mg/dL (40-60); LDL Cholesterol Calculated 18 mg/dL (<130); Osmolality Calculated 301 mOsm/kg (285-295); Potassium 4.6 mmol/L (3.5-5.1); Sodium 144 mmol/L (136-145); Thyroid Stimulating Hormone 1.01 uIU/mL (0.36-3.74); Total Protein 6.7 g/dL (6.4-8.2); Triglycerides 238 mg/dL (0-150)
== END 2023-02-24 10:28 | disposition home or self-care (01) ==
LOC: CHSLAB 10:29
PROVIDERS: PCP Nurse Practitioner; Visit Provider Nurse Practitioner
DX: E11.9 Type 2 diabetes mellitus without complications (principal); E03.9 Hypothyroidism, unspecified; E78.5 Hyperlipidemia, unspecified
CPT/HCPCS: 36415; 80053; 80061; 83036; 84443

== ENCOUNTER 2023-03-27 08:20 | Outpatient (CLI) | payer MEDICARE, SELFPAY ==
--- NOTE | ~2023-03-27 | MM_ITS ---
EXAMINATION: MM screening adrian BI w [facility] HISTORY: Screening mammogram, family history of breast cancer in her mother and sister. TECHNIQUE: Craniocaudal and mediolateral oblique 3-D tomosynthesis images were obtained and synthetic 2-D images were generated. CAD analysis was submitted and interpreted. COMPARISON: 11/25/2022, 11/10/2021, 03/09/2020 BREAST PARENCHYMAL COMPOSITION: There are scattered areas of fibroglandular density. FINDINGS: No suspicious mass, calcification, or architectural distortion are identified in either nellie ast to suggest malignancy. There has been no suspicious interval change. IMPRESSION: 1. No mammographic evidence of malignancy. 2. Recommend routine screening mammography while the patient remains in good health. BI-RADS Category 1: Negative Reviewed, dictated and finalized at location A. IMPRESSION: 1. No mammographic evidence of malignancy. 2. Recommend routine screening mammography while the patient remains in good he alth. BI-RADS Category 1: Negative
[2023-03-27 09:26] LABS: Creatinine Urine 86.12 mg/dL (40-278); Total Protein Urine Random 28.6 mg/dL (0.0-11.9); Ur Ttl Prot Creatinine Ratio 0.33 mg/mg (0-0.20)
[2023-03-27 09:30] LABS: Albumin Level 3.2 g/dL (3.4-5.0); Anion Gap 11 mmol/L (8-16); Blood Urea Nitrogen 23 mg/dL (7-18); Calcium 9.4 mg/dL (8.5-10.1); Carbon Dioxide 28 mmol/L (21-32); Chloride 102 mmol/L (98-108); Estimated Glomerular Filt Rate 33; Glucose 113 mg/dL (70-99); Osmolality Calculated 296 mOsm/kg (285-295); Phosphorus 4.6 mg/dL (2.6-4.7); Potassium 5.1 mmol/L (3.5-5.1); Sodium 141 mmol/L (136-145)
== END 2023-03-27 08:21 | disposition home or self-care (01) ==
LOC: CHSIMG 08:22
PROVIDERS: PCP Nurse Practitioner; Visit Provider Internal Medicine Nephrology
DX: Z12.31 Encounter for screening mammogram for malignant neoplasm of breast (principal); I12.9 Hypertensive chronic kidney disease with stage 1 through stage 4 chronic kidney disease, or unspecified chronic kidney disease; N18.32 Chronic kidney disease, stage 3b; M85.80 Other specified disorders of bone density and structure, unspecified site; E11.22 Type 2 diabetes mellitus with diabetic chronic kidney disease
CPT/HCPCS: 36415; 77063; 77067; 80069; 82570; 84156

== ENCOUNTER 2023-09-28 08:48 | Outpatient (CLI) | payer MEDICARE, SELFPAY ==
[2023-09-28 09:04] LABS: Basophils Absolute Auto 0.06 K/mm3 (0.00-0.10); Basophils Percent Auto 0.6 % (0.0-1.0); Eosinophils Absolute Auto 0.34 K/mm3 (0.02-0.50); Eosinophils Percent Auto 3.4 % (1.0-6.0); Hematocrit 34.6 % (35.0-42.0); Hemoglobin 10.5 g/dL (11.7-13.8); Immature Granulocyte Absolute 0.04 K/mm3 (0.00-0.00); Immature Granulocyte Percent A 0.4 % (0.0-0.0); Lymphocytes Absolute Auto 1.77 K/mm3 (1.10-4.50); Mean Corpuscular HGB Conc 30.3 g/dL (32.0-36.0); Mean Corpuscular Hemoglobin 29.2 pg (27.0-31.0); Mean Corpuscular Volume 96.4 fL (78.0-102.0); Mean Platelet Volume 8.8 fl (9.2-11.8); Monocytes Absolute Auto 0.78 K/mm3 (0.10-0.90); Monocytes Percent Auto 7.9 % (2.0-11.0); Neutrophils Absolute Auto 6.9 K/mm3 (1.7-7.2); Neutrophils Percent Auto 69.7 % (50.0-70.0); Platelet Count Result 395 K/mm3 (150-420); Red Blood Count 3.59 M/mm3 (4.20-5.40); Red Cell Distribution Width 14.8 % (11.6-14.4); White Blood Count 9.9 K/mm3 (4.8-10.8)
[2023-09-28 09:26] LABS: Creatinine Urine 70.42 mg/dL (40-278); MALB Creatinine Ratio 22.4 mg/g (0-30); Microalbumin Urine Random 15.8 mg/L
[2023-09-28 09:28] LABS: Hemoglobin A1C 6.1 % (<5.7)
[2023-09-28 09:42] LABS: Alanine Aminotransferase 17 U/L (14-59); Albumin Level 3.2 g/dL (3.4-5.0); Alkaline Phosphatase 89 U/L (46-116); Anion Gap 8 mmol/L (8-16); Aspartate Amino Transferase 22 U/L (15-37); Bilirubin,Total 0.2 mg/dL (0.00-1.00); Blood Urea Nitrogen 27 mg/dL (7-18); Calcium 9.2 mg/dL (8.5-10.1); Carbon Dioxide 32 mmol/L (21-32); Chloride 104 mmol/L (98-108); Cholesterol 129 mg/dL (0-200); Estimated Glomerular Filt Rate 27; Free T4 Free Thyroxine 1.28 ng/dL (0.76-1.46); Glucose 88 mg/dL (70-99); HDL Direct 49 mg/dL (40-60); LDL Cholesterol Calculated 37 mg/dL (<130); Osmolality Calculated 302 mOsm/kg (285-295); Potassium 4.7 mmol/L (3.5-5.1); Sodium 144 mmol/L (136-145); Thyroid Stimulating Hormone 0.45 uIU/mL (0.36-3.74); Total Protein 6.6 g/dL (6.4-8.2); Triglycerides 215 mg/dL (0-150)
[2023-10-02 16:58] LABS: Vitamin D 25 Hydroxy 39 ng/mL (30-100)
== END 2023-09-28 08:49 | disposition home or self-care (01) ==
LOC: CHSLAB 08:50
PROVIDERS: PCP Nurse Practitioner Family; Visit Provider Nurse Practitioner Family
DX: I10 Essential (primary) hypertension (principal); Z78.0 Asymptomatic menopausal state; E78.2 Mixed hyperlipidemia; Z13.0 Encounter for screening for diseases of the blood and blood-forming organs and certain disorders involving the immune mechanism; E03.9 Hypothyroidism, unspecified; E11.22 Type 2 diabetes mellitus with diabetic chronic kidney disease; E55.9 Vitamin D deficiency, unspecified
CPT/HCPCS: 36415; 80053; 80061; 82043; 82306; 83036; 84439; 84443; 85025